=== PATIENT | female | born 1980 | race Caucasian/White ===

== ENCOUNTER 2023-07-06 21:36 | Emergency (ER) | payer MEDICAID, SELFPAY ==
[2023-07-06 21:51] VITALS: BP 128/102; PULSE 78; RESP 16; TEMP 36.7; O2SAT 95; BMI 36.9
--- NOTE | 2023-07-06 22:39 | ED.CHESTPAI1 ---
HPI - Chest Pain General Chief Complaint: Chest Pain Stated Complaint: CHEST PAIN Time Seen by Provider: 07/06/23 22:04 Source: patient History of Present Illness HPI narrative: daily cigarette smoker. Presents complaining of recurrent chest pain on and off since yesterday and associated dyspnea. No nausea or abdominal pain. Denies past history of heart disease. States after eating dinner tonight pain increased again. Now that she is here the pain has resolved MD complaint: Reports chest heaviness Related Data Allergies Allergy/AdvReac Type Severity Reaction Status Date / Time bupropion [From Wellbutrin] AdvReac Intermediate Agitated Verified 07/06/23 21:56 Review of Systems ROS Status of ROS 10 or more systems reviewed and unremarkable except as noted in history and below [facility] Social History Smoking status: Current every day smoker Exam Constitutional Vital Signs, click to edit/add: Last Vital Signs Temp 98.1 F 07/06/23 21:51 Pulse 78 07/06/23 21:51 Resp 16 07/06/23 21:51 BP 128/102 H 07/06/23 21:51 Pulse Ox 95 07/06/23 21:51 O2 Del Method Room Air 07/06/23 21:51 Common normals: no apparent distress, average body habitus, oriented x3, no limitations, healthy appearing, alert and well nourished Eye Common normals: EOMs intact bilaterally and conjunctivae normal Respiratory Common normals: normal respiratory effort, no retractions, no use of accessory muscles and clear to auscultation bilaterally Cardio Common normals: regular rate, regular rhythm, S1 normal heart sound and S2 normal heart sound GI Common normals: Normal to inspection, nondistended, normoactive bowel sounds present, soft to palpation and non-tender Extremity Common normals: normal to inspection and full ROM Neuro Common normals: oriented x3, CN's II-XII intact bilaterally, moves all extremities, no focal motor deficits and no sensory deficits noted Psych Appearance: grossly normal Course Vital Signs Vital signs: Vital Signs Temperature 98.1 F 07/06/23 21:51 Pulse Rate 78 07/06/23 21:51 Respiratory Rate 16 07/06/23 21:51 Blood Pressure 128/102 H 07/06/23 21:51 Pulse Oximetry 95 07/06/23 21:51 Oxygen Delivery Method Room Air 07/06/23 21:51 Temperature 98.1 F 07/06/23 21:51 Pulse Rate 78 07/06/23 21:51 Respiratory Rate 16 07/06/23 21:51 Blood Pressure 128/102 H 07/06/23 21:51 Pulse Oximetry 95 07/06/23 21:51 Oxygen Delivery Method Room Air 07/06/23 21:51 MDM - Chest Pain MDM Narrative Medical decision making narrative: patient presents with acute asthma flareup. Hospitalized in the past for asthma. presented short of breath and using accessory muscles. Treated with Xopenex and solumedrol and has improved. Still has diffuse wheeze but no longer using accessory muscles. cxray clear. Mildly elevated WBC discussed with hospitalist and patient admitted for asthma exacerbation Discharge Plan Discharge Chief Complaint: Chest Pain Clinical Impression: Asthma exacerbation Patient Disposition: Admitted as Observation Referrals: Physician,Non-Staff, MD [Primary Care Provider] - 1 week
--- NOTE | 2023-07-06 22:41 | XR_ITS ---
The [address] [address] Patient Name: THOMAS GARCIA MRN: [id number] date: 1980 Sex: F Assigned Patient Location: ER Current Patient Location: ER Accession/Order Number: [id number] Exam Date: 07/06/2023 22:55 Report Date: 07/06/2023 23:23 At the request of: MAYELA BAUER Procedure: XR chest 1V CXR HISTORY: Shortness of breath COMPARISON: None. TECHNIQUE: 1 view chest submitted for review. FINDINGS: The lungs are adequately expanded without evidence of acute infiltrate or effusion. The cardiac silhouette measures within normal. Pulmonary vascularity is unremarkable. Osseous structures do not demonstrate any acute abnormality. XR/XR chest 1V IMPRESSION: No plain film evidence for acute cardiopulmonary disease. Electronically authenticated by: ROMEO TOVAR Date: 07/06/2023 23:23
--- NOTE | 2023-07-06 22:41 | ECG_ITS ---
The [facility] Test Date: 2023-07-06 Pat Name: THOMAS GARCIA Department: Room: - Gender: Female [employer]: : 1980 Requested By: [id number] Order Number: [id number] Reading MD: CARLIN ENGLAND Measurements Intervals [place] Rate: 83 P: 38 ND: 178 QRS: 81 QRSD: 80 T: 46 QT: 366 QTc: 406 Interpretive Statements 1100 Sinus rhythm 9110 normal ECG No previous ECG available for comparison Electronically Signed On 07-07-2023 7:15:29 EDT by CARLIN ENGLAND
[2023-07-06 22:55] LABS: Basophils Absolute Auto 0.1 10^3/uL (0.0-0.1); Basophils Percent Auto 0.4 % (0.2-2.0); Hematocrit 39.1 % (36.0-48.0); Hemoglobin 13.2 g/dL (12.0-16.0); Immature Granulocytes Abs Auto 0.03 10^3/uL (0.00-0.03); Immature Granulocytes Pct Auto 0.2 % (0.0-0.5); Lymphocytes Absolute Auto 4.3 10^3/uL (1.2-3.8); Lymphocytes Percent Auto 34.7 % (20.5-60.0); Mean Corpuscular HGB Conc 33.8 g/dL (29.9-35.2); Mean Corpuscular Hemoglobin 30.8 pg (26.7-34.0); Mean Corpuscular Volume 91.1 fL (81.0-99.0); Monocytes Absolute Auto 1.1 10^3/uL (0.3-0.8); Monocytes Percent Auto 8.6 % (1.7-12.0); Neutrophils Absolute Auto 6.9 10^3/uL (1.4-6.5); Neutrophils Percent Auto 56.1 % (43.0-75.0); Platelet Count 300 10^3/uL (150-450); Red Blood Count 4.29 10^6/uL (4.20-5.40); Red Cell Distribution Width 13.4 % (11.0-15.0); White Blood Count 12.4 10^3/uL (4.0-11.0)
[2023-07-06 23:16] LABS: Anion Gap 8.9; BUN Creatinine Ratio 15.4; Calcium 8.8 mg/dL (8.5-10.1); Chloride 109 mmol/L (98-107); Estimated GFR (African America >60 (>=60); Estimated GFR (Non-African Ame >60 (>=60); Glucose 105 mg/dL (74-106); Potassium 3.9 mmol/L (3.5-5.1); Sodium 142 mmol/L (136-145); Troponin I High Sensitivity 4.7 pg/mL (4.0-51.3)
[2023-07-07 00:36] VITALS: BP 122/95; PULSE 73; RESP 22; O2SAT 100
== END 2023-07-07 00:50 | disposition home or self-care (01) ==
PROVIDERS: Emergency Provider Internal Medicine
DX: R07.9 Chest pain, unspecified (principal); F17.210 Nicotine dependence, cigarettes, uncomplicated
CPT/HCPCS: 36415; 71045; 80048; 84484; 85025; 93005; 99285

== ENCOUNTER 2023-08-01 22:04 | Emergency (ER) | payer MEDICAID, SELFPAY ==
[2023-08-01 22:16] VITALS: BP 132/91; PULSE 90; RESP 18; TEMP 36.5; O2SAT 100; BMI 38.0
--- NOTE | 2023-08-01 22:33 | ED_ITS ---
HPI - General Adult General Chief complaint: Headache Stated complaint: HEADACHE Time Seen by Provider: 08/01/23 22:09 Source: patient Mode of arrival: walk-in History of Present Illness HPI narrative: This 42-year-old female with a history of occasional migraine headaches presents for evaluation of a migraine headache that started earlier today associated with nausea and 4 episodes of vomiting. Right now she has a bifrontal headache, p hotophobia and phonophobia. She denies any thunderclap presentation of a headache. She has not had any slurred speech, blurred vision, confusion or any focal neurologic symptoms associated with this headache. She states she took Aleve earlier today which usually helps her headaches but she started throwing up and realized she could not go to work tonight. She has no abdominal pain. She still feels moderately nauseated. She has not had any diarrhea. She denies any chest pain or shortness of breath. Related Data Allergies Allergy/AdvReac Type Severity Reaction Status Date / Time bupropion [From Wellbutrin] AdvReac Intermediate Agitated Verified 07/06/23 21:56 Review of Systems ROS Status of ROS 10 or more systems reviewed and unremarkable except as noted in history and below [facility] Social History Smoking status: Current every day smoker Exam Narrative Exam Narrative: Nurses note and vital signs reviewed and patient is not hypoxic. General: The patient appears well and in no apparent distress. Sge is resting comfortably on the cart in a bright room. No distress noted, no active vomiting noted Skin: Warm, dry, no pallor noted. There is no rash noted. Head: Normocephalic, atraumatic Eye: Normal conjunctiva, no drainage, EOMI. PERRL, mild photophobia appreciated Ears, Nose, Mouth, and Throat: oral mucosa is moist. Cardiovascular: Regular Rate and Rhythm S1S2, no murmur, rubs or gallops Respiratory: Patient is in no distress, no accessory muscle use, lungs are clear to auscultation, no wheezing, rales or rhonchi Back: non-tender, no CVA tenderness bilaterally to percussion. GI: Normal bowel sounds, no tenderness to palpation, no masses appreciated. No rebound, guarding, or rigidity noted. Musculoskeletal: The patient has no evidence of calf tenderness, no pitting edema, symmetrical pulses noted bilaterally Neurological: A&O x4, normal speech, air brake tester strength is intact bilaterally, no facial droop, upper and lower extremity strength and sensation is intact Psychiatric: Cooperative Constitutional Vital Signs, click to edit/add: Last Vital Signs Temp 97.7 F 08/01/23 22:16 Pulse 90 08/01/23 22:16 Resp 18 08/01/23 22:16 BP 132/91 08/01/23 22:16 Pulse Ox 100 08/01/23 22:16 O2 Del Method Room Air 08/01/23 22:16 Course Vital Signs Vital signs: Vital Signs Temperature 97.7 F 08/01/23 22:16 Pulse Rate 90 08/01/23 22:16 Respiratory Rate 18 08/01/23 22:16 Blood Pressure 132/91 08/01/23 22:16 Pulse Oximetry 100 08/01/23 22:16 Oxygen Delivery Method Room Air 08/01/23 22:16 Temperature 97.7 F 08/01/23 22:16 Pulse Rate 90 08/01/23 22:16 Respiratory Rate 18 08/01/23 22:16 Blood Pressure 132/91 08/01/23 22:16 Pulse Oximetry 100 08/01/23 22:16 Oxygen Delivery Method Room Air 08/01/23 22:16 Medical Decision Making MDM Narrative Medical decision making narrative: This 43-year-old female presents for evaluation of a bifrontal migraine headache associated with nausea and 4 episodes of vomiting. She has a history of occasional migraine headaches. She denies any fever. She has no neck pain or stiffness. She denies any thunderclap presentation of her headache. She has no associated neurologic symptoms. She declined an IV and requested IM injections for her pain and nausea. She was medicated with IM Toradol and IM Phenergan. She remained hemodynamically stable in the emergency department. On reevaluation she stated she was feeling better and was able to be discharged home. Discharge Plan Discharge Chief Complaint: Headache Clinical Impression: Migraine, Headache Patient Disposition: Home, Self-Care Time of Disposition Decision: 23:32 Instructions: Migraine Headache (ED) Stand Alone Forms: Portal Instructions Referrals: Physician,Non-Staff, MD [Primary Care Provider] - 1 week
[2023-08-01] MEDS: KETOROLAC TROMETHAMINE 60 MG/2 ML VIAL IM (23:09)
[2023-08-01] MEDS: PROMETHAZINE HCL 25 MG/ML VIAL IM (23:09)
== END 2023-08-01 23:30 | disposition home or self-care (01) ==
PROVIDERS: Emergency Provider Emergency Medicine
DX: G43.909 Migraine, unspecified, not intractable, without status migrainosus (principal); F17.210 Nicotine dependence, cigarettes, uncomplicated
CPT/HCPCS: 96372; 99284

== ENCOUNTER 2024-01-01 22:18 | Emergency (ER) | payer MEDICAID, SELFPAY ==
[2024-01-01 22:23] VITALS: BP 152/121; PULSE 85; RESP 18; TEMP 36.6; O2SAT 96; BMI 36.9
--- NOTE | 2024-01-01 22:44 | ED_ITS ---
HPI - General Adult General Chief complaint: Headache Stated complaint: Headache Time Seen by Provider: 01/01/24 22:39 Source: patient Mode of arrival: walk-in Limitations: no limitations History of Present Illness HPI narrative: past history of migraines. States headache started yesterday with associated nausea. Same headache as with past migraines. Ate dinner tonight and afterwards vomited and now presents with her migraine. No fever or chills or extremity numbness or weakness Related Data Home Medications Medication Instructions Recorded Confirmed No Known Home Medications 01/01/24 01/01/24 Allergies Allergy/AdvReac Type Severity Reaction Status Date / Time bupropion [From Wellbutrin] AdvReac Intermediate Agitated Verified 01/01/24 22:26 Review of Systems ROS Status of ROS 10 or more systems reviewed and unremark able except as noted in history and below [facility] Social History Smoking status: Current every day smoker Exam Constitutional Vital Signs, click to edit/add: Last Vital Signs Temp 98.1 F 01/01/24 23:39 Pulse 85 01/01/24 22:23 Resp 18 01/01/24 22:23 BP 152/121 H 01/01/24 22:23 Pulse Ox 96 01/01/24 22:23 O2 Del Method Room Air 01/01/24 22:23 Common normals: no apparent distress, average body habitus, oriented x3, no limitations, healthy appearing, alert and well nourished [facility] Common normals: normocephalic and head/scalp atraumatic Eye Common normals: PERRL, EOMs intact bilaterally, conjunctivae normal and no scleral icterus Respiratory Common normals: normal respiratory effort, no retractions, no use of accessory muscles and clear to auscultation bilaterally Cardio Common normals: regular rate, S1 normal heart sound and S2 normal heart sound GI Common normals: Normal to inspection, nondistended, normoactive bowel sounds present, soft to palpation and non-tender Extremity Common normals: normal to inspection and full ROM Neuro Common normals: oriented x3, CN's II-XII intact bilaterally, moves all extremities, no focal motor deficits and no sensory deficits noted Psych Appearance: grossly normal Course Vital Signs Vital signs: Vital Signs Temperature 97.9 F 01/01/24 22:23 Pulse Rate 85 01/01/24 22:23 Respiratory Rate 18 01/01/24 22:23 Blood Pressure 152/121 H 01/01/24 22:23 Pulse Oximetry 96 01/01/24 22:23 Oxygen Delivery Method Room Air 01/01/24 22:23 Temperature 98.1 F 01/01/24 23:39 Pulse Rate 85 01/01/24 22:23 Respiratory Rate 18 01/01/24 22:23 Blood Pressure 152/121 H 01/01/24 22:23 Pulse Oximetry 96 01/01/24 22:23 Oxygen Delivery Method Room Air 01/01/24 22:23 Medical Decision Making MDM Narrative Medical decision making narrative: patient presents with migraine headache. states similar to past migraines. She does not want IV meds for her headaches. States she usually gets IM shot and can go home. I did review old records and before she was given IM Phenergan and T oradol. This was ordered this time as well Discharge Plan Discharge Chief Complaint: Headache Clinical Impression: Migraine Patient Disposition: Home, Self-Care Prescriptions / Home Meds: No Action No Known Home Medications Instructions: Migraine Headache (ED) Stand Alone Forms: Portal Instructions Referrals: Physician,Non-Staff, MD [Primary Care Provider] - 1 week
[2024-01-01 23:39] VITALS: TEMP 36.7
[2024-01-01] MEDS: KETOROLAC TROMETHAMINE 60 MG/2 ML VIAL IM (23:39)
[2024-01-01] MEDS: PROMETHAZINE HCL 25 MG/ML VIAL IM (23:39)
[2024-01-02 00:01] VITALS: BP 131/98
== END 2024-01-02 00:01 | disposition home or self-care (01) ==
PROVIDERS: Emergency Provider Internal Medicine
DX: G43.909 Migraine, unspecified, not intractable, without status migrainosus (principal); F17.210 Nicotine dependence, cigarettes, uncomplicated
CPT/HCPCS: 96372; 99284; J1885; J2250

== ENCOUNTER 2024-05-01 18:39 | Emergency (ER) | payer MEDICAID, SELFPAY ==
[2024-05-01 18:46] VITALS: BP 143/85; PULSE 105; TEMP 37; O2SAT 95; BMI 34.0
--- NOTE | 2024-05-01 18:48 | ED.GENADUL1 ---
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 She reports associated nausea and vomiting. She has not had any fevers or upper respiratory symptoms. She denies visual changes, peripheral paresthesias. She states after she was vomiting she noticed pain in the left posterior neck. And she is concerned that her shunt may have shifted as she has not had imaging for this shunt in several years. She is not concerned for . She has had previous evaluations for headache in this emergency department and was treated successfully with intramuscular Phenergan and Toradol, this is what the patient is requesting tonight Related Data Previous Rx's ?Medication ?Instructions ?Recorded ketorolac 10 mg tablet 10 mg PO TID PRN pain #10 tabs 05/01/24 promethazine 25 mg tablet 25 mg PO Q6H PRN nausea and 05/01/24 vomiting #12 tabs Allergies Allergy/AdvReac Type Severity Reaction Status Date / Time bupropion [From Wellbutrin] AdvReac Intermediate Agitated Verified 01/01/24 22:26 Opioid HPI Opioid Management Most Recent Opioid Data: Last Pain Scale 10 05/01/24 19:09 Last MAR Pain Assessment 05/01/24 19:09 Review of Systems ROS Constitutional Denies: fever or chills Eyes Denies: change in vision Ears, nose, mouth, and throat Denies: throat pain Cardiovascular Denies: chest pain Respiratory Denies: shortness of breath Gastrointestinal Reports: nausea and vomiting Genitourinary Denies: painful urination Musculoskeletal Reports: neck pain; Denies: back pain Integumentary/Breast Denies: rash Neurological Reports: headache; Denies: numbness in extremities, weakness in extremities or dizziness Hematologic/Lymphatic Denies: easy bruising or easy bleeding PFSH PFSH Social History Smoking status: Current every day smoker Exam Narrative Exam Narrative: Gen.: Awake, alert, in no distress Head: Normocephalic, atraumatic ENT: Moist mucous membranes, Diffuse minimal tenderness of the left paraspinal muscles of the cervical spine with no posterior bony tenderness, no nuchal rigidity or meningismus Respiratory: No respiratory distress Extremities: Moves extremities equally Psych: Normal mood and affect Neuro: No focal neuro deficit Skin: Warm, dry, intact Constitutional Vital Signs, click to edit/add: Last Vital Signs Temp 98.6 F 05/01/24 18:46 Pulse 80 05/01/24 20:28 Resp 16 05/01/24 20:28 BP 133/79 05/01/24 20:28 Pulse Ox 100 05/01/24 20:28 O2 Del Method Room Air 05/01/24 20:28 Course Vital Signs Vital signs: Vital Signs Temperature 98.6 F 05/01/24 18:46 Pulse Rate 105 H 05/01/24 18:46 Respiratory Rate 20 05/01/24 18:46 Blood Pressure 143/85 H 05/01/24 18:46 Pulse Oximetry 95 05/01/24 18:46 Oxygen Delivery Method Room Air 05/01/24 18:46 Temperature 98.6 F 05/01/24 18:46 Pulse Rate 80 05/01/24 20:28 Respiratory Rate 16 05/01/24 20:28 Blood Pressure 133/79 05/01/24 20:28 Pulse Oximetry 100 05/01/24 20:28 Oxygen Delivery Method Room Air 05/01/24 20:28 Medical Decision Making MDM Narrative Medical decision making narrative: Patient treated with intramuscular Phenergan and Toradol, she declined an IV. CT of the brain was performed, she has not had a CT of the head in this facility since 2017. Cystic area is stable, shunt is in place with no hydrocephalus. Patient is neurovascularly intact, headache is improved and she is resting comfortably on reevaluation. She is discharged home with Phenergan and Toradol. Follow-up with PCP and return to the ER if symptoms change or worsen SUPERVISED APC VISIT, PHYSICIAN ATTESTATION: Based on the medical record the care appears appropriate. ? Medical Records Medical records reviewed: Yes I reviewed the patient's medical records Imaging Data CT scan - head: Attestation: I have reviewed the pertinent imaging results. Radiologist's impression: ITS Impressions Head CT 05/01/24 18:52 IMPRESSION: 1. Occipital craniectomy with placement of drain/shunt in the posterior fossa extending to the left of midline posteriorly dorsal to the left cerebellar hemisphere extending through distribution of large CSF-containing cystic lesion at posterior midline cerebellar region. See measurements above. Correlate with history. 2. No acute ischemic change or intracranial hemorrhage. No hydrocephalus. No midline shift or herniation. 3. 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 4. 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 Electronically authenticated by: ZITA STEVE Date: 05/01/2024 20:13 Discharge Plan Discharge Stand Alone Forms: Portal Instructions Chief Complaint: Headache Clinical Impression: Headache Patient Disposition: Home, Self-Care Time of Disposition Decision: 20:20 Condition: Good Mode of Transportation: Private Vehicle Prescriptions / Home Meds: New ketorolac 10 mg tablet 10 mg PO TID PRN (Reason: pain) Qty: 10 0RF promethazine 25 mg tablet 25 mg PO Q6H PRN (Reason: nausea and vomiting) Qty: 12 0RF Print Language: Macedonian Instructions: Acute Headache (ED) Referrals: Physician,Non-Staff, [Primary Care Provider] - 1 week Discharge Date/Time: 05/01/24 20:28 Documented by User: Noel Morgan MD 05/02/24 06:52 HPI HPI - General Adult General Chief complaint: Headache Stated complaint: Headache Time Seen by Provider: 05/01/24 18:46 Related Data Previous Rx's ?Medication ?Instructions ?Recorded ketorolac 10 mg tablet 10 mg PO TID PRN pain #10 tabs 05/01/24 promethazine 25 mg tablet 25 mg PO Q6H PRN nausea and 05/01/24 vomiting #12 tabs Allergies Allergy/AdvReac Type Severity Reaction Status Date / Time bupropion [From Wellbutrin] AdvReac Intermediate Agitated Verified 01/01/24 22:26 Opioid HPI Opioid Management Most Recent Opioid Data: Last Pain Scale 10 05/01/24 19:09 Last MAR Pain Assessment 05/01/24 19:09 PFSH REPLACED BY [facility] Social History Smoking status: Current every day smoker Exam Constitutional Vital Signs, click to edit/add: Last Vital Signs Temp 98.6 F 05/01/24 18:46 Pulse 80 05/01/24 20:28 Resp 16 05/01/24 20:28 BP 133/79 05/01/24 20:28 Pulse Ox 100 05/01/24 20:28 O2 Del Method Room Air 05/01/24 20:28 Course Vital Signs Vital signs: Vital Signs Temperature 98.6 F 05/01/24 18:46 Pulse Rate 105 H 05/01/24 18:46 Respiratory Rate 20 05/01/24 18:46 Blood Pressure 143/85 H 05/01/24 18:46 Pulse Oximetry 95 05/01/24 18:46 Oxygen Delivery Method Room Air 05/01/24 18:46 Temperature 98.6 F 05/01/24 18:46 Pulse Rate 80 05/01/24 20:28 Respiratory Rate 16 05/01/24 20:28 Blood Pressure 133/79 05/01/24 20:28 Pulse Oximetry 100 05/01/24 20:28 Oxygen Delivery Method Room Air 05/01/24 20:28 Medical Decision Making Imaging Data CT scan - head: Radiologist's impression: ITS Impressions Head CT 05/01/24 18:52 IMPRESSION: 1. Occipital craniectomy with placement of drain/shunt in the posterior fossa extending to the left of midline posteriorly dorsal to the left cerebellar hemisphere extending through distribution of large CSF-containing cystic lesion at posterior midline cerebellar region. See measurements above. Correlate with history. 2. No acute ischemic change or intracranial hemorrhage. No hydrocephalus. No midline shift or herniation. 3. 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 4. 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 Electronically authenticated by: ZITA STEVE Date: 05/01/2024 20:13 Discharge Plan Discharge Stand Alone Forms: Portal Instructions Chief Complaint: Headache Clinical Impression: Headache Patient Disposition: Home, Self-Care Time of Disposition Decision: 20:20 Condition: Good Mode of Transportation: Private Vehicle Prescriptions / Home Meds: New ketorolac 10 mg tablet 10 mg PO TID PRN (Reason: pain) Qty: 10 0RF promethazine 25 mg tablet 25 mg PO Q6H PRN (Reason: nausea and vomiting) Qty: 12 0RF Print Language: Macedonian Instructions: Acute Headache (ED) Referrals: Physician,Non-Staff, MD [Primary Care Provider] - 1 week Discharge Date/Time: 05/01/24 20:28 Attending Attestation - Gen Attending Attestation Attestation: discussed this case with resident/PA/OPERATOR RECEPTIONIST, discussed management plan with case management and agree with resident/PA/OPERATOR RECEPTIONIST note
--- OUTSIDE RECORDS SUMMARY | 2024-05-01 18:49 | XMS_ITS ---
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 Name Role Phone Valentina Carlton Unavailable Unavailable Unavailable Unknown, Referring Provider Unavailable Unav ailable REQUEST, NONE LISTED Primary Care Unavaila RHONDA Stone Attending Unavailable PIERO, RHONDA Marks Admitting Unavailable RHONDA HARRY Consulting Unavailable INES PEDRAZA Consulting Unavailable SUZANNE, DR LESLIE Pearce Attending Unavailable SUZANNE, DR LESLIE Pearce Admitting Unavailable DIANA MERCEDES Consulting Unavailable REQUEST, NONE LISTED Primary Care Unavaila ABDULKADIR Robertson Consulting Unavailable SUZANNE, DR LESLIE Pearce Attending Unavailable SUZANNE, DR LESLIE Pearce Admitting Unavailable REQUEST, NONE LISTED Primary Care Unavaila nell PALACIOS, DR LESLIE Pearce Consulting Unavailable SUZANNE, DR LESLIE Pearce Attending Unavailable SUZANNE, DR LESLIE Pearce Admitting Unavailable SUZANNE, DR LESLIE Pearce Consulting Unavailable REQUEST, NONE LISTED Primary Care Unavaila KENDALL Cole Referring Unavailable KENDALL العلي Primary Care Unavailable NICHOLE MCCORMICK Attending Unavailable Allergies Allergy Classification Reported Allergen(s) Allergy Type Date of Onset Reaction(s) Facility Aminoketones (4 sources) buPROPion; Translations: [Wellbutrin] Drug Allergy Other -[facility] Work Phone: (12 sources) buPROPion; Translations: [Wellbutrin] Drug Allergy Other [facility] Work Phone: (1 source) buPROPion Drug Allergy 07-30-2017 [facility] Repository (1 source) buPROPion; Translations: [BUPROPION HCL] Drug Allergy 02-13-2019 [facility] Repository Encounters Encounter Date Encounter Type Care Provider Facility Start: 09-15-2022 End: 09-15-[address] LESLIE PALACIOS Facility:[facility] Start: 09-12-2022 End: 09-12-[address] RANDALL LISTED REQUEST Facility:[facility] Start: 08-16-2022 End: 08-17-[address] LESLIE PALACIOS Facility:[facility] Start: 07-11-2022 End: 07-12-[address] LESLIE PALACIOS Facility:[facility] Start: 02-04-2022 AUDIT Referring Prov ider Unknown [facility] Work Phone: Start: 02-02-2022 Office outpatient vi sit 25 minutes Referring Provider Unknown [facility] Work Phone: Start: 01-06-2022 Chart Update Referring Prov ider Unknown [facility] Work Phone: Start: 01-04-2022 Office outpatient vi sit 25 minutes Referring Provider Unknown [facility] Work Phone: Start: 07-23-2021 Patient encounter procedure Referring Provider Unknown [facility] Work Phone: Start: 07-17-2021 AQUATICFU4, Provider : Es Hurtado, Status: Pen, Time: 10:00 AM Referring Provider Unknown [facility] Work Phone: Start: 07-17-2021 Patient encounter procedure Referring Provider Unknown [facility] Work Phone: Start: 07-15-2021 AQUATICFU4, Provider : Es Hurtado, Status: Pen, Time: 10:00 AM Referring Provider Unknown [facility] Work Phone: Start: 07-15-2021 Patient encounter procedure Referring Provider Unknown [facility] Work Phone: Start: 07-13-2021 Patient encounter procedure Referring Provider Unknown [facility] Work Phone: Start: 07-13-2021 AQUATICFU4, Provider : Susanna Santiago, Status: Pen, Time: 10:00 AM Referring Provider Unknown [facility] Work Phone: Start: 07-10-2021 AQUATICFU4, Provider : Es Hurtado, Status: Pen, Time: 9:15 AM Referring Provider Unknown [facility] Work Phone: Start: 07-10-2021 [facility] encounter [facility] Work Phone: Start: 07-08-2021 AQUATICFU4, Provider : Es Hurtado, Status: Pen, Time: 10:00 AM Referring Provider [facility] Work Phone: Start: 07-08-2021 Patient encounter procedure Referring Provider [facility] Work Phone: Start: 07-07-2021 End: 07-07-2021 ambulatory KENDALL العلي [facility] Start: 07-06-2021 Patient encounter procedure Referring Provider [facility] Work Phone: Start: 07-02-2021 Patient encounter procedure Referring Provider [facility] Work Phone: Start: 05-19-2021 Rx Renewal Referring Prov ider Unknown [facility] Work Phone: Start: 04-30-2021 AUDIT Referring Prov ider Unknown [facility] Work Phone: Start: 04-28-2021 Office outpatient vi sit 15 minutes Referring Provider Unknown [facility] Work Phone: Start: 04-09-2021 Rx Renewal Valentina pearce Work Phone: [facility] Work Phone: Immunizations Immunization Date Immunization Notes Care Provider Scott garnett 09-12-2019 influenza, injectabl e, quadrivalent, preservative free Referring Provider Unknown [facility] Work Phone: 09-12-2019 tetanus toxoid, redu gene diphtheria toxoid, and acellular pertussis vaccine, adsorbed Referring Provider Unknown -[facility] Work Phone: Medications Completed/Discontinued Medications Medication Drug Class(es) Dates Sig (Normalized) Sig (Original) DULoxetine 30 mg delayed release oral capsule (4 sources) Serotonin and Norepinephrine Reuptake Inhibitor Start: 01-04-2022 take 1 capsule by mouth once daily DULoxetine HCl - 30 MG Oral Capsule Delayed Release Particles TAKE 1 CAPSULE Daily Quantity: 90 Refills: 3 Ordered: 02-Feb-2022 Stentz PA-C, George Start : 04-Jan-2022 Active Start: 01-04-2022 take 1 capsule by mo uth twice daily DULoxetine HCl - 30 MG Oral Capsule Delayed Release Particles TAKE 1 CAPSULE TWICE DAILY. Quantity: 60 Refills: 0 Ordered: 04-Jan-2022 Stentz PA-C, George Start : 04-Jan-2022 Active Fish Oil Burp-Less 1200 MG Oral Capsule (11 sources) Start: 04-28-2021 take 1 capsule by mouth once daily Fish Oil Burp-Less 1200 MG Oral Capsule TAKE 1 CAPSULE Daily Quantity: 30 Refills: 0 Ordered: 28-Apr-2021 Valentina Aguayo Start : 28-Apr-2021 Active Fish Oil 1200 MG Oral Capsule (9 sources) Start: 05-19-2021 take 1 capsule by mouth once daily Fish Oil 1200 MG Oral Capsule TAKE 1 CAPSULE BY MOUTH EVERY DAY Quantity: 30 Refills: 5 Ordered: 19-May-2021 Valentina Aguayo Start : 19-May-2021 Active FLUoxetine 40 mg oral capsule (5 sources) Serotonin Reuptake Inhibitor Start: 01-25-2022 take 1 capsule by mouth once daily in the morning FLUoxetine HCl - 40 MG Oral Capsule TAKE 1 CAPSULE BY MOUTH EVERY DAY IN THE MORNING Quantity: 30 Refills: 0 Ordered: 25-Jan-2022 DO Start : 25-Jan-2022 Active Start: 11-11-2021 take 1 capsule by mo uth once daily in the morning FLUoxetine HCl - 20 MG Oral Capsule TAKE 1 CAPSULE BY MOUTH EVERY DAY IN THE MORNING Quantity: 30 Refills: 0 Ordered: 08-Dec-2021 DO Start : 11-Nov-2021 Complete PROzac 10 MG Ora l Capsule Quantity: 0 Refills: 0 Ordered: 04-Jan-2022 DO Active QUEtiapine 300 mg oral tablet (16 sources) Atypical Antipsychotic Start: 03-17-2021 take 1 tablet by mouth once daily at bedtime QUEtiapine Fumarate 300 MG Oral Tablet TAKE 1 TABLET BY MOUTH EVERYDAY AT BEDTIME Quantity: 30 Refills: 5 Ordered: 28-Apr-2021 Bianka ELLIS-Valentina MAS Start : 17-Mar-2021 Active red yeast rice 600 mg oral capsule (11 sources) Start: 04-28-2021 take 2 capsules by mouth once daily Red Yeast Rice 600 MG Oral Capsule TAKE 2 CAPSULE Daily Quantity: 60 Refills: 5 Ordered: 28-Apr-2021 Bianka BLANKN-RETAIL SALES ADVISOR, Valentina Start : 28-Apr-2021 Active varenicline 1 mg oral tablet (1 source) Partial Cholinergic Nicotinic Agonist Start: 02-04-2022 take 1 tablet by mouth once daily, then take 2 tablets by mouth once daily Varenicline Tartrate 1 MG Oral Tablet Take 1 tablet once daily for the first week, then take 2 tablets daily. Quantity: 60 Refills: 3 Ordered: 04-Feb-2022 George Sosa PA-C Start : 04-Feb-2022 Active Payers Date Payer Category Payer Unknown [id number] 1980 Unknown [id number] 1980 Unknown [id number] 1980 Unknown [id number] 1959 Medicaid [id number] 1959 Self-pay [id number] Unknown [facility] PL[facility] Plan of Treatment Date Care Activity Detail Author Start: 05-07-2022 EPV, Provider: George Sosa, Status: Pen, Time: 1:15 PM EPV, Provider: George Sosa, Status: Pen, Time: 1:15 PM [facility] Work Phone: Start: 02-02-2022 FUV, Provider: George Sosa, Status: Pen, Time: 1:15 PM FUV, Provider: George Sosa, Status: Pen, Time: 1:15 PM [facility] Work Phone: Start: 07-30-2021 EPV, Provider: Valentina Carlton, Status: Pen, Time: 12:45 PM EPV, Provider: Valentina Carlton, Status: Pen, Time: 12:45 PM [facility] Work Phone: Start: 07-24-2021 PTRECHECKA, Provider : Yoseph Arshad, Status: Pen, Time: 1:15 PM PTRECHECKA, Provider: Yoseph Arshad, Status: Pen, Time: 1:15 PM [facility] Work Phone: Start: 07-23-2021 PTFUADULT4, Provider : Stephan Lyon, Status: Pen, Time: 10:00 AM PTFUADULT4, Provider: Stephan Lyon, Status: Pen, Time: 10:00 AM [facility] Work Phone: Start: 07-21-2021 PTFUADULT4, Provider : Stephan Lyon, Status: Pen, Time: 10:00 AM PTFUADULT4, Provider: Stephan Lyon, Status: Pen, Time: 10:00 AM [facility] Work Phone: Start: 07-17-2021 AQUATICFU4, Provider : Es Hurtado, Status: Pen, Time: 10:00 AM AQUATICFU4, Provider: Es Hurtado, Status: Pen, Time: 10:00 AM [facility] Work Phone: Start: 07-15-2021 AQUATICFU4, Provider : Es Hurtado, Status: Pen, Time: 10:00 AM AQUATICFU4, Provider: Es Hurtado, Status: Pen, Time: 10:00 AM [facility] Work Phone: Start: 07-13-2021 AQUATICFU4, Provider : Susanna Santiago, Status: Pen, Time: 10:00 AM AQUATICFU4, Provider: Susanna Santiago, Status: Pen, Time: 10:00 AM [facility] Work Phone: Start: 07-10-2021 AQUATICFU4, Provider : Es Hurtado, Status: Pen, Time: 9:15 AM AQUATICFU4, Provider: Es Hurtado, Status: Pen, Time: 9:15 AM [facility] Work Phone: Start: 07-08-2021 AQUATICFU4, Provider : Es Hurtado, Status: Pen, Time: 10:00 AM AQUATICFU4, Provider: Es Hurtado, Status: Pen, Time: 10:00 AM [facility] Work Phone: Start: 07-06-2021 AQUATICFU4, Provider : Es Hurtado, Status: Pen, Time: 1:45 PM AQUATICFU4, Provider: Es Hurtado, Status: Pen, Time: 1:45 PM [facility] Work Phone: Start: 04-28-2021 FUV, Provider: Valentina Carlton, Status: Pen, Time: 1:45 PM FUV, Provider: Valentina Carlton, Status: Pen, Time: 1:45 PM [facility] Work Phone: Problems Active Problems Problem Classification Problem Date Documented Date Episodic/Chronic Anxiety disorders (16 sources) Mixed anxiety and depressive disorder; Translations: [Dysthymic disorder] Chronic Asthma (1 source) Unspecified asthma, uncomplicated; Translations: [UNSPECIFIED ASTHMA UNCOMPLICATED] Onset: 09-16-2022 Chronic Diabetes mellitus without complication (16 sources) Impaired fasting glycemia; Translations: [Impaired fasting glucose] Episodic Disorders of lipid metabolism (15 sources) Hyperlipidemia; Translations: [Other and unspecified hyperlipidemia] Chronic Headache; including migraine (4 sources) Migraine, unspecified, not intractable, without status migrainosus; Translations: [MIGRAINE UNS NOT INTRACT W/O SM] Onset: 08-16-2022 Chronic Malaise and fatigue (4 sources) Fatigue; Translations: [Other malaise and fatigue] Episodic Mood disorders (18 sources) Bipolar disorder, most recent episode depression; Translations: [Bipolar I disorder, most recent episode (or current) depressed, unspecified] Chronic Other connective tissue disease (4 sources) Fibromyalgia; Translations: [Myalgia and myositis, unspecified] Episodic Other non-traumatic joint disorders (4 sources) Pain in left shoulder; Translations: [PAIN IN LEFT SHOULDER] Onset: 09-15-2022 Episodic Other non-traumatic joint disorders (3 sources) Pain in right shoulder; Translations: [PAIN IN RIGHT SHOULDER] Onset: 09-12-2022 Episodic Other nutritional; endocrine; and metabolic disorders (20 sources) Body mass index 40+ - severely obese; Translations: [Body Mass Index 40.0-44.9, adult] Chronic Residual codes; unclassified (1 source) Acquired absence of other specified parts of digestive tract; Translations: [ACQ ABSENCE OTH PART DIGESTV TRACT] Onset: 09-16-2022 Episodic Spondylosis; intervertebral disc disorders; other back problems (15 sources) Degeneration of lumbar intervertebral disc; Translations: [Degeneration of lumbar or lumbosacral intervertebral disc] Chronic Spondylosis; intervertebral disc disorders; other back problems (20 sources) Lumbar radiculopathy; Translations: [Thoracic or lumbosacral neuritis or radiculitis, unspecified] Episodic Sprains and strains (1 source) Strain of unspecified muscle, fascia and tendon at shoulder and upper arm level, right arm, initial encounter; Translations: [STRN UNS MSC F TND SHLDR UA RA INIT] Onset: 09-14-2022 Episodic Substance-related disorders (1 source) Nicotine dependence, cigarettes, uncomplicated; Translations: [NICOTINE DEPEND CIGARETTES UNCOMP] Onset: 09-16-2022 Chronic Past or Other Problems Problem Classification Problem Date Documented Da te Episodic/Chronic E Codes: Cut/pierceb (1 source) Nail entering through skin, initial encounter; Translations: [NAIL ENTERING THROUGH SKIN INITIAL] Onset: 07-14-2022 Episodic Immunizations and screening for infectious disease (1 source) Encounter for immunization; Translations: [ENCOUNTER FOR IMMUNIZATION] Onset: 07-14-2022 Episodic Open wounds of extremities (4 sources) Puncture wound without foreign body, left foot, initial encounter; Translations: [PUNCT WOUND W/O FB LT FOOT INITIAL] Onset: 07-11-2022 Episodic Other aftercare (1 source) Other terminal computer operator (current) drug therapy; Translations: [OTH SLABBING MACHINE OPERATOR CURRENT DRUG THERAPY] Onset: 07-14-2022 Episodic Procedures Date Procedure Procedure Detail Performing Clinician Appendectomy Valentina Carlton Work Phone: Bilateral tubal ligation Josh Carlton Work Phone: Creation of cerebros sariah fluid shunt Valentina Carlton Work Phone: Operation on gallbladder Josh Carlton Work Phone: Operative procedure on knee Valentina Carlton Work Phone: Comment on above: right knee tumor rem rony; Results Test Name Value Interpretation Reference Range Facility Prison Documentson 01-03-2023 Prison Documents [id number] :127 Normal [facility] Prison Documentson 11-30-2022 Prison Documents [id number]: 127 Normal [facility] XR SHOULDER RT 2V or >on XR SHOULDER RT 2V or > EXAM: XR SHOULDER RT 2V or > INDICATION: Pain. COMPARISON: None. TECHNIQUE: Right shoulder, 3 views. FINDINGS: No acute fracture or dislocation. Intact glenohumeral and acromioclavicular joints. Unremarkable soft tissues. IMPRESSION: No acute osseous abnormality. Electronically authenticated by: INES PEDRAZA Date: 2022-09-12 17:42 Normal [facility] XR FOOT LT MIN 3 VIEWSon XR FOOT LT MIN 3 VIEWS EXAM: XR FOOT LT MIN 3 VIEWS HISTORY: Stepped on nail COMPARISON: None. TECHNIQUE: 4 views FINDINGS: No radiodense foreign body. No osseous lesion, fracture, dislocation or subluxation. Joint spaces are normal. No visualized effusion. No visualized soft tissue edema. IMPRESSION: Normal x-rays Electronically authenticated by: ABDULKADIR SIFUENTES Date: 2022-07-11 22:56 Normal [facility] Office Visit (Family Dilia kennedy)on 02-02-2022 Follow-up visit Diagnoses/Problems Bipolar depression (296.50) (F31.9) Fibromyalgia (729.1) (M79.7) Fatigue (780.79) (R53.83) Hyperlipidemia (272.4) (E78.5) Impaired fasting glucose (790.21) (R73.01) Morbid obesity with BMI of 40.0-44.9, adult (278.01,V85.41) (E66.01,Z68.41) Anxiety (300.00) (F41.9) Depression (311) (F32.A) Orders Fatigue Vitamin B12, Serum; Status:Hold For - Exact Date; Requested for:Before next appointment; Vitamin D 25-Hydroxy; Status:Hold For - Exact Date; Requested for:Before next appointment; Fibromyalgia Renew: DULoxetine HCl - 30 MG Oral Capsule Delayed Release Particles (Cymbalta); TAKE 1 CAPSULE Daily Impaired fasting glucose Complete Blood Count + Differential; Status:Active; Requested for:02Feb2022; Follow-up visit in 3 months Outpatient Follow-up Status: Complete Done: 02Feb2022 SCHEDULED FOR... OV MAY 07 2022 @ 1:15 Comprehensive Metabolic Panel; Status:Active; Requested for:02Feb2022; Glucose Monitoring Strips; Status:Active; Requested for:02Feb2022; Hemoglobin A1C; Status:Active; Requested for:02Feb2022; Lipid Panel; Status:Active; Requested for:02Feb2022; Provider Impressions BIPOLAR: Stable, continue Seroquel. ANXIETY: Stable, continue fluoxetine. DEPRESSION: Stable, continue fluoxetine. FIBROMYALGIA: Reduce cymbalta to once daily, may go back up to two prn. FATIGUE: Discussed at length sleep hygiene, healthy diet choices, and moderate amount of exercise. HYPERLIPIDEMIA: She would like to address this with diet and exercise. Lipid panel in 3 months. IMPAIRED FASTING GLUCOSE: She would like to address this with diet and exercise. A1C in 3 months. Follow up in 3 months with labs. Patient verbalized understanding, is agreeable with the above plan, and verbalized understanding of all education provided. Chief Complaint 1 month med check , pt c/o of fatigue. History of Present Illness 41 YOF presents for med check. BIPOLAR: Feeling good on current regimen. No issues. ANXIETY: Feeling good on current regimen. No issues. DEPRESSION: Feeling good on current regime. No issues. FIBROMYALGIA: Cymbalta effective since starting, reduced pain and paresthesias in hands. FATIGUE: Increased fatigue since starting cymbalta. Sleeps well. Does not exercise, diet not the healthiest . HYPERLIPIDEMIA: ASCVD 10 year risk 7.37%-borderline. Discussed statin therapy vs. diet modification and exercise. IMPAIRED FASTING GLUCOSE: Last A1C 6.1. Discussed metformin vs. diet modification and exercise. HEALTH MAINTENANCE: Does no follow with [facility], does not want mammogram right now. Check B12 and Vit D at follow up. 'Scores and Scales' ROSEY-7 [id number] ROSEY-7 Total Score21 Feeling nervous, anxious or on edgeNearly every day - 3 Not being able to stop or control worryingNearly every day - 3 Worrying too much about different thingsNearly every day - 3 Trouble relaxingNearly every day - 3 Being so restless that it's hard to sit stillNearly every day - 3 Becoming easily annoyed or irritableNearly every day - 3 Feeling afraid as if something awful might happenNearly every day - 3 Review of Systems Review of Systems: Constitutional: no fever, no unintentional weight change Eye: no recent visual problem Respiratory: no shortness of breath Cardiac: no chest pain GI: no reflux, no nausea, no vomiting, no diarrhea, no constipation, no heartburn, no abdominal pain Neurological: no headache Active Problems Bipolar depression (296.50) (F31.9) Body mass index (BMI) of 40.0 to 44.9 in adult (V85.41) (Z68.41) Disc degeneration, lumbar (722.52) (M51.36) Fatigue (780.79) (R53.83) Fibromyalgia (729.1) (M79.7) Hyperlipidemia (272.4) (E78.5) Impaired fasting glucose (790.21) (R73.01) Low back pain (724.2) (M54.50) Morbid obesity with BMI of 40.0-44.9, adult (278.01,V85.41) (E66.01,Z68.41) Radiculopathy, lumbar region (724.4) (M54.16) Surgical History History of Appendectomy History of Cerebrospinal fluid shunt creation History of Gallbladder surgery History of Knee surgery right knee tumor removed History of Tubal ligation bilateral Family History Family history of type 2 diabetes mellitus (V18.0) (Z83.3) Family history of type 2 diabetes mellitus (V18.0) (Z83.3) Family history of blood clots (V18.3) (Z82.49) Family history of lung cancer (V16.1) (Z80.1) Family history of blood clots (V18.3) (Z82.49) Social History Current every day smoker (305.1) (F17.200) started age 16 yr old, 1 1/2 ppd No advance directives (V49.89) (Z78.9) Allergies Wellbutrin very jittery; Recorded By: Hyacinth Ruiz; 03/17/2021 1:46:47 PM Current Meds Medication NameInstructionReason QUEtiapine Fumarate 300 MG Oral TabletTAKE 1 TABLET BY MOUTH EVERYDAY AT BEDTIMEBipolar depression DULoxetine HCl - 30 MG Oral Capsule Delayed Release ParticlesTAKE 1 CAPSULE TWICE DAILY.Fibromyalgia FLUoxetine HCl - 40 MG Oral CapsuleTAKE 1 CAPSULE BY MOUTH EVERY D (more content not included)... Normal [employer] Tobacco Screening.on 022 Tobacco use status [facility]PHS a) Yes -[facility] Work Phone: [phone] Tobacco Screening. Yes [facility] Work Phone: [phone] LAMONT-WITH REFLEX TO ENAon LAMONT WITH REFLEX TO CHARLEEN Negative Normal NEGATIVE [facility] Comment on above: Result Comment: The Antinuclear Antibody (LAMONT) test was performed using indirect immunofluorescence assay with HEp-2 cells slide. Performed By: #### A NA2 #### [facility] [address] [place] [address] BASIC METABOLIC PANELon 12-16 Anion gap [Moles/Vol] 12 mmol/L Normal 10 - 20 [facility] Comment on above: Performed By: #### B MP #### [address] [address] Calcium [Mass/Vol] 9.2 mg/dL Normal 8.6 - 10.3 [facility] Comment on above: Performed By: #### B MP #### [address] [address] Chloride [Moles/Vol] 104 mmol/L Normal 98 - 107 [facility] Comment on above: Performed By: #### B MP #### [address] [address] Creatinine [Mass/Vol] 0.73 mg/dL Normal 0.50 - 1.05 [facility] Comment on above: Performed By: #### B MP #### [address] [address] eGFR FEMALE >90 Normal >90 [facility] Comment on above: Result Comment: CALC ULATIONS OF ESTIMATED GFR ARE PERFORMED USING THE 2020 CKD-EPI STUDY REFIT EQUATION WITHOUT THE RACE VARIABLE FOR THE IDMS-TRACEABLE CREATININE METHODS. https://jasn.asnjournals.org/content//ASN.181769112 8 Performed By: #### B MP #### [address] [address] Glucose [Mass/Vol] 85 mg/dL Normal 74 - 99 [facility] Comment on above: Performed By: #### B MP #### [address] [address] HCO3 (Bld) [Moles/Vol] 25 mmol/L Normal 21 - 32 [facility] Comment on above: Performed By: #### B MP #### [address] [address] Potassium [Moles/Vol] 4.2 mmol/L Normal 3.5 - 5.3 [facility] Comment on above: Performed By: #### B MP #### [address] [address] Sodium [Moles/Vol] 137 mmol/L Normal 136 - 145 [facility] Comment on above: Performed By: #### B MP #### [address] [address] Urea nitrogen [Mass/Vol] 11 mg/dL Normal 6 - 23 [facility] Comment on above: Performed By: #### B MP #### [address] [address] CBC AND DIFFERENTIALon 01-04 Basophils (Bld) [#/Vol] 0.00 10*3/uL Normal 0.00 - 0.10 [facility] Comment on above: Performed By: #### C BCDF #### [address] [address] Basophils/100 WBC (Bld) 0.3 % Normal 0.0 - 2.0 [facility] Comment on above: Performed By: #### C BCDF #### [address] [address] Eosinophils (Bld) [#/Vol] 0.00 10*3/uL Normal 0.00 - 0.70 [facility] Comment on above: Performed By: #### C BCDF #### [address] [address] Eosinophils/100 WBC (Bld) 0.0 % Normal 0.0 - 6.0 [facility] Comment on above: Performed By: #### C BCDF #### [address] [address] Erythrocyte distribution width (RBC) [Ratio] 14.7 % High 11.5 - 14.5 [facility] Comment on above: Performed By: #### C BCDF #### [address] [address] Hematocrit (Bld) [Volume fraction] 43.0 % Normal 36.0 - 46.0 [facility] Comment on above: Performed By: #### C BCDF #### [address] [address] Hemoglobin (Bld) [Mass/Vol] 14.1 g/dL Normal 12.0 - 16.0 [facility] Comment on above: Performed By: #### C BCDF #### [address] [address] Lymphocytes (Bld) [#/Vol] 4.20 10*3/uL Normal 1.20 - 4.80 [facility] Comment on above: Performed By: #### C BCDF #### [address] [address] Lymphocytes/100 WBC (Bld) 33.8 % Normal 13.0 - 44.0 [facility] Comment on above: Performed By: #### C BCDF #### [address] [address] MCHC (RBC) [Mass/Vol] 32.7 g/dL Normal 32.0 - 36.0 [facility] Comment on above: Performed By: #### C BCDF #### [address] [address] MCV (RBC) [Entitic vol] 90 fL Normal 80 - 100 [facility] Comment on above: Performed By: #### C BCDF #### [address] [address] Monocytes (Bld) [#/Vol] 0.90 10*3/uL Normal 0.10 - 1.00 [facility] Comment on above: Performed By: #### C BCDF #### [address] [address] Monocytes/100 WBC (Bld) 7.2 % Normal 2.0 - 10.0 [facility] Comment on above: Performed By: #### C BCDF #### [address] [address] Neutrophils (Bld) [#/Vol] 7.20 10*3/uL Normal 1.20 - 7.70 [facility] Comment on above: Result Comment: Perc ent differential counts (%) should be interpreted in the context of the absolute cell counts (cells/L). Performed By: #### C BCDF #### [address] [address] Neutrophils/100 WBC (Bld) 58.7 % Normal 40.0 - 80.0 [facility] Comment on above: Performed By: #### C BCDF #### [address] [address] NUCLEATED RBC 0.1 /100 WBC Normal [facility] Comment on above: Performed By: #### C BCDF #### [address] [address] Platelets (Bld) [#/Vol] 432 10*3/uL Normal 150 - 450 [facility] Comment on above: Performed By: #### C BCDF #### [address] [address] RBC 4.80 x10E12/L Normal 4.00 - 5.20 [facility] Comment on above: Performed By: #### C BCDF #### [address] [address] WBC (Bld) [#/Vol] 12.3 10*3/uL High 4.4 - 11.3 [facility] Comment on above: Performed By: #### C BCDF #### [address] [address] Complete Blood Count + Diffmarcia jarvis 01-04-2022 Basophils/100 WBC (Bld) 0.3 % 0.0 - 2.0 [facility] Work Phone: [phone] Erythrocyte distribution width (RBC) [Ratio] 14.7 % above high threshold See Below [facility] Work Phone: [phone] Comment on above: Reference Range: 11. 5 - 14.5 Hematocrit (Bld) [Volume fraction] 43.0 % See Below [facility] Work Phone: [phone] Comment on above: Reference Range: 36. 0 - 46.0 Hemoglobin (Bld) [Mass/Vol] 14.1 g/dL See Below [facility] Work Phone: [phone] Comment on above: Reference Range: 12. 0 - 16.0 Lymphocytes/100 WBC (Bld) 33.8 % See Below [facility] Work Phone: [phone] Comment on above: Reference Range: 13. 0 - 44.0 MCHC (RBC) [Mass/Vol] 32.7 g/dL See Below [facility] Work Phone: [phone] Comment on above: Reference Range: 32. 0 - 36.0 MCV (RBC) [Entitic vol] 90 fL 80 - 100 [facility] Work Phone: [phone] Monocytes/100 WBC (Bld) 7.2 % 2.0 - 10.0 [facility] Work Phone: [phone] Neutrophils/100 WBC (Bld) 58.7 % See Below [facility] Work Phone: [phone] Comment on above: Reference Range: 40. 0 - 80.0 Platelets (Bld) [#/Vol] 432 10*3/uL 150 - 450 [facility] Work Phone: [phone] RBC (Bld) [#/Vol] 4.80 {x10E12/L} See Below [facility] Work Phone: [phone] Comment on above: Reference Range: 4.0 0 - 5.20 WBC (Bld) [#/Vol] 12.3 10*3/uL above high threshold 4.4 - 11.3 [facility] Work Phone: [phone] Complete Blood Count + Differential 0.00 {x10E9/L} See Below [facility] Work Phone: [phone] Comment on above: Reference Range: 0.0 0 - 0.10 Reference Range: 0.0 0 - 0.70 Complete Blood Count + Differential 0.90 {x10E9/L} See Below [facility] Work Phone: [phone] Comment on above: Reference Range: 0.1 0 - 1.00 Complete Blood Count + Differential 4.20 {x10E9/L} See Below [facility] Work Phone: [phone] Comment on above: Reference Range: 1.2 0 - 4.80 Complete Blood Count + Differential 7.20 {x10E9/L} See Below [facility] Work Phone: Comment on above: Reference Range: 1.2 0 - 7.70 Percent differential counts (%) should be interpreted in the context of the absolute cell counts (cells/L). Complete Blood Count + Differential 0.0 % 0.0 - 6.0 [facility] Work Phone: Complete Blood Count + Differential 0.1 {/100_WBC} [facility] Work Phone: HEMOGLOBIN A1Con 01-04-2022 Glucose [Mass/Vol] 128 mg/dL Normal [facility] Comment on above: Performed By: #### H BA1E #### [address] [address] HbA1c (Bld) [Mass fraction] 6.1 % Abnormal [facility] Comment on above: Result Comment: Diag nosis of Diabetes-Adults Non-Diabetic: < or = 5.6% Increased risk for developing diabetes: 5.7-6.4% Diagnostic of diabetes: > or = 6.5% . Monitoring of Diabetes Age (y) Therapeutic Goal (%) Adults: >18 <7.0 Pediatrics: 13-18 <7.5 7-12 <8.0 0- 6 7.5-8.5 [employer]. Diabetes Care 33(S1), Nov 2009. Performed By: #### H BA1E #### [address] [address] Hemoglobin A1Con 01-04-2022 Glucose [Mass/Vol] 128 mg/dL [facility] Work Phone: HbA1c (Bld) [Mass fraction] 6.1 % Abnormal [facility] Work Phone: Comment on above: Diagnosis of Diabete s-Adults Non-Diabetic: < or = 5.6% Increased risk for developing diabetes: 5.7-6.4% Diagnostic of diabetes: > or = 6.5%. Monitoring of Diabetes Age (y) Therapeutic Goal (%) Adults: >18 <7.0 Pediatrics: 13-18 <7.5 7-12 <8.0 0- 6 7.5-8.5 [employer]. Diabetes Care 33(S1), Nov 2009. LIPID PANEL (CORONARY RISK 2 )on 01-04-2022 Cholesterol [Mass/Vol] 239 mg/dL High 0 - 199 [facility] Comment on above: Result Comment: . AGE DESIRABLE BORDERLINE HIGH HIGH 0-19 Y 0 - 169 170 - 199 >/= 200 20-24 Y 0 - 189 190 - 224 >/= 225 >24 Y 0 - 199 200 - 239 >/= 240 All ranges are based on fasting samples. Specific therapeutic targets will vary based on patient-specific cardiac risk. . Pediatric guidelines reference:Pediatrics 2011, 128(S5). Adult guidelines reference: NCEP ATPIII Guidelines, JOSE 2001, 258:6776-97 . Venipuncture immediately after or during the administration of Metamizole may lead to falsely low results. Testing should be performed immediately prior to Metamizole dosing. Performed By: #### L IPID #### [address] [address] Cholesterol in HDL [Mass/Vol] 34.0 mg/dL Abnormal [facility] Comment on above: Result Comment: . AGE VERY LOW LOW NORMAL HIGH 0-19 Y < 35 < 40 40-45 ---- 20-24 Y ---- < 40 >45 ---- >24 Y ---- < 40 40-60 >60 . Performed By: #### L IPID #### [address] [address] Cholesterol in LDL [Mass/Vol] 164 mg/dL High 0 - 99 [facility] Comment on above: Result Comment: . NEAR BORD AGE DESIRABLE OPTIMAL HIGH HIGH VERY HIGH 0-19 Y 0 - 109 --- 110-129 >/= 130 ---- 20-24 Y 0 - 119 --- 120-159 >/= 160 ---- >24 Y 0 - 99 100-129 130-159 160-189 >/=190 . Performed By: #### L IPID #### [address] [address] Cholesterol in VLDL [Mass/Vol] 41 mg/dL High 0 - 40 [facility] Comment on above: Performed By: #### L IPID #### [address] [address] Cholesterol.total/ Cholesterol in HDL [Mass ratio] 7.0 {ratio} Abnormal [facility] Comment on above: Result Comment: REF VALUES DESIRABLE < 3.4 HIGH RISK > 5.0 Performed By: #### L IPID #### [address] [address] NON-HDL CHOLESTEROL 205 mg/dL Normal [facility] Comment on above: Result Comment: AGE DESIRABLE BORDERLINE HIGH HIGH VERY HIGH 0-19 Y 0 - 119 120 - 144 >/= 145 >/= 160 20-24 Y 0 - 149 150 - 189 >/= 190 ---- >24 Y 30 MG/DL ABOVE LDL CHOLESTEROL GOAL . Performed By: #### L IPID #### [place] [id number] Triglyceride [Mass/Vol] 204 mg/dL High 0 - 149 [facility] Comment on above: Result Comment: . AGE DESIRABLE BORDERLINE HIGH HIGH VERY HIGH 0 D-90 D 19 - 174 ---- ---- ---- 91 D- 9 Y 0 - 74 75 - 99 >/= 100 ---- 10-19 Y 0 - 89 90 - 129 >/= 130 ---- 20-24 Y 0 - 114 115 - 149 >/= 150 ---- >24 Y 0 - 149 150 - 199 200- 499 >/= 500 . Venipuncture immediately after or during the administration of Metamizole may lead to falsely low results. Testing should be performed immediately prior to Metamizole dosing. Performed By: #### L IPID #### [place] [id number] Laboratory - Chemistry and C hemistry - challengeon 01-04-2022 Anion gap [Moles/Vol] 12 mmol/L 10 - 20 [facility] Work Phone: Calcium [Mass/Vol] 9.2 mg/dL 8.6 - 10.3 [facility] Work Phone: Chloride [Moles/Vol] 104 mmol/L 98 - 107 [facility] Work Phone: CO2 [Moles/Vol] 25 mmol/L 21 - 32 [facility] Work Phone: Creatinine [Mass/Vol] 0.73 mg/dL See Below [facility] Work Phone: Comment on above: Reference Range: 0.5 0 - 1.05 Glucose [Mass/Vol] 85 mg/dL 74 - 99 [facility] Work Phone: Potassium [Moles/Vol] 4.2 mmol/L 3.5 - 5.3 [facility] Work Phone: Sodium [Moles/Vol] 137 mmol/L 136 - 145 [facility] Work Phone: TSH Qn 2.36 m[IU]/L See Below [facility] Work Phone: Comment on above: Reference Range: 0.4 4 - 3.98 TSH testing is performed using different testing methodology at [facility] than at other legacy [facility]. Direct result comparisons should only be made within the same method. Urea nitrogen [Mass/Vol] 11 mg/dL 6 - 23 [facility] Work Phone: Laboratory - Serology - non- microon 01-04-2022 Nuclear Ab Hep2 substrate Ql (S) Negative NEGATIVE [facility] Work Phone: Comment on above: The Antinuclear Anti body (LAMONT) test was performed using indirect immunofluorescence assay with HEp-2 cells slide. Lipid Panelon 01-04-2022 Cholesterol [Mass/Vol] 239 mg/dL above high threshold 0 - 199 [facility] Work Phone: Comment on above: . AGE DESIRABLE BORD OLIVER HIGH HIGH 0-19 Y 0 - 169 170 - 199 >/= 200 20-24 Y 0 - 189 190 - 224 >/= 225 >24 Y 0 - 199 200 - 239 >/= 240 All ranges are based on fasting samples. Specific therapeutic targets will vary based on patient-specific cardiac risk.. Pediatric guidelines reference:Pediatrics 2011, 128(S5). Adult guidelines reference: NCEP ATPIII Guidelines, JOSE 2001, 258:2486-97. Venipuncture immediately after or during the administration of Metamizole may lead to falsely low results. Testing should be performed immediately prior to Metamizole dosing. Cholesterol in HDL [Mass/Vol] 34.0 mg/dL Abnormal [facility] Work Phone: Comment on above: . AGE VERY LOW LOW N ORMAL HIGH 0-19 Y < 35 < 40 40-45 ---- 20- 24 Y ---- < 40 >45 ---- >24 Y ---- < 40 40-60 >60. Cholesterol in LDL [Mass/Vol] 164 mg/dL above high threshold 0 - 99 [facility] Work Phone: Comment on above: . NEAR BORD AGE EARNEST RABLE OPTIMAL HIGH HIGH VERY HIGH 0-19 Y 0 - 109 --- 110-129 >/= 130 ---- 20-24 Y 0 - 119 --- 120-159 >/= 160 ---- >24 Y 0 - 99 100-129 130-159 160-189 >/=190. Cholesterol non HDL [Mass/Vol] 205 mg/dL [facility] Work Phone: Comment on above: AGE DESIRABLE BORDER LINE HIGH HIGH VERY HIGH 0-19 Y 0 - 119 120 - 144 >/= 145 >/= 160 20-24 Y 0 - 149 150 - 189 >/= 190 ---- >24 Y 30 MG/DL ABOVE LDL CHOLESTEROL GOAL. Cholesterol.total/ Cholesterol in HDL [Mass ratio] 7.0 {ratio} Abnormal [facility] Work Phone: Comment on above: REF VALUESDESIRABLE < 3.4HIGH RISK > 5.0 Triglyceride [Mass/Vol] 204 mg/dL above high threshold 0 - 149 [facility] Work Phone: Comment on above: . AGE DESIRABLE BORD OLIVER HIGH HIGH VERY HIGH 0 D-90 D 19 - 174 ---- ---- ----91 D- 9 Y 0 - 74 75 - 99 >/= 100 ---- 10-19 Y 0 - 89 90 - 129 >/= 130 ---- 20-24 Y 0 - 114 115 - 149 >/= 150 ---- >24 Y 0 - 149 150 - 199 200- 499 >/= 500. Venipuncture immediately after or during the administration of Metamizole may lead to falsely low results. Testing should be performed immediately prior to Metamizole dosing. Lipid Panel 41 mg/dL above high threshold 0 - 40 [facility] Work Phone: No Panel Informationon 01-04 Nearly every day - 3 -A [facility] Work Phone: Severe Anxiety [facility] Work Phone: Extremely difficult -As [facility] Work Phone: Comment on above: How difficult have t hose problems made it for you to do your work, take care of things at home, or get along with other people? 21 1 [facility] Work Phone: Comment on above: Over the last two we eks, how often have you been bothered by the following problems? Feeling nervous, anxious, or on edge: Nearly every day - 3Not being able to stop or control worrying: Nearly every day - 3Worrying too much about different things: Nearly every day - 3Trouble relaxing: Nearly every day - 3Being so restless that it's hard to sit still: Nearly every day - 3Becoming easily annoyed or irritable: Nearly every day - 3Feeling afraid as if something awful might happen: Nearly every day - 3 >90 >90 [facility] Work Phone: Comment on above: CALCULATIONS OF KAYDEN MATED GFR ARE PERFORMED USING THE 2020 CKD-EPI STUDY REFIT EQUATION WITHOUT THE RACE VARIABLE FOR THE IDMS-TRACEABLE CREATININE METHODS.https://jasn.asnjournals.org/content//ASN.2 790231486 Office Visit (Family Dilia kennedy)on 01-04-2022 Follow-up visit Diagnoses/Problems Morbid obesity with BMI of 40.0-44.9, adult (278.01,V85.41) (E66.01,Z68.41) Fibromyalgia (729.1) (M79.7) Fatigue (780.79) (R53.83) Orders Fatigue LAMONT-WITH REFLEX TO CHARLEEN; Status:In Progress - Specimen/Data Collected; Done: 04Jan2022 Basic Metabolic Panel; Status:In Progress - Specimen/Data Collected; Done: 04Jan2022 Complete Blood Count + Differential; Status:In Progress - Specimen/Data Collected; Done: 04Jan2022 Hemoglobin A1C; Status:In Progress - Specimen/Data Collected; Done: 04Jan2022 Lipid Panel; Status:In Progress - Specimen/Data Collected; Done: [id number] TSH WITH REFLEX TO FREE T4 IF ABNORMAL; Status:In Progress - Specimen/Data Collected; Done: [id number] Fibromyalgia Start: DULoxetine HCl - 30 MG Oral Capsule Delayed Release Particles (Cymbalta); TAKE 1 CAPSULE TWICE DAILY Follow-up visit in 1 month Outpatient Follow-up Status: Complete Done: 04Jan2022 SCHEDULED FOR... OV FEBRUARY 02 2022 @ 1:15 Provider Impressions Discussed diet and exercise, including Mediterranean diet, to improve BMI. For pain/paresthesias we will do trial of Cymbalta, follow up in 1 month to check medication efficacy, discussed side effects of Cymbalta including suicidal ideation. Labs today, will call with abnormal results, follow up in 1 month. Chief Complaint pt c/o b/l hand pain and numbness x 6 month , would like blood work to check BG, c/o feeling fatigued. Adult Risk Screening Depression/Suicide Screening: During the past 2 weeks, the patient felt down, depressed or hopeless. During the past 2 weeks, the patient felt little interest or pleasure in doing things. PHQ-9 Depression Scale: 1. Little interest or pleasure in doing things - nearly every day 2. Feeling down, depressed or hopeless - nearly every day 3. Trouble falling asleep or sleeping too much - nearly every day 4. Feeling tired or having little energy - nearly every day 5. Poor appetite or overeating - nearly every day 6. Feeling bad about self or failure or letting others down - more than half the days 7. Trouble concentrating on things - more than half the days 8. Moving / speaking slowly or fidgety / restless - more than half the days 9. Thought would be better off or hurting self - not at all Total Score: 21/27 Severity of depression is severe. How difficult have these problems made it for you to do your work, take care of things at home, or get along with people? Extremely difficult. History of Present Illness Ms. Mchugh presents today for hand pain/numbness x 6 months, ranges from 2-7/10 in pain severity. No alleviating/aggravating factors. She is right hand dominant. Similar symptoms in bilateral feet but milder. Denies history of spinal injury, no injury to extremities. History of depression with anxiety, follows with psych at [facility]. Fatigue - Has been feeling sluggish, would like to check A1C and CBC to check sugar and hemoglobin. 'Scores and Scales' ROSEY-7 [id number] ROSEY-7 Total Score21 Feeling nervous, anxious or on edgeNearly every day - 3 Not being able to stop or control worryingNearly every day - 3 Worrying too much about different thingsNearly every day - 3 Trouble relaxingNearly every day - 3 Being so restless that it's hard to sit stillNearly every day - 3 Becoming easily annoyed or irritableNearly every day - 3 Feeling afraid as if something awful might happenNearly every day - 3 Review of Systems Constitutional - yes fatigue, no fever, no chills, no recent weight gain/loss Eyes - no blurred vision, no diplopia ENT - no hearing loss, no earache, no sore throat, no swollen glands in the neck and no nasal discharge Cardiovascular - no chest pain, no palpitations and no lower extremity edema Respiratory - no shortness of breath, no chronic cough and no shortness of breath on exertion Gastrointestinal - no abdominal pain, no dysuria, no hematuria MSK - yes hand/foot pain and paresthesia, no back pain, no arthralgias Skin - no rashes, no skin lesions Neurological - no weakness, no headaches, no dizziness Psychiatric - yes anxiety, yes depression, no confusion Active Problems Bipolar depression (296.50) (F31.9) Body mass index (BMI) of 40.0 to 44.9 in adult (V85.41) (Z68.41) Depression with anxiety (300.4) (F41.8) Disc degeneration, lumbar (722.52) (M51.36) Hyperlipidemia (272.4) (E78.5) Impaired fasting glucose (790.21) (R73.01) Low back pain (724.2) (M54.50) Radiculopathy, lumbar region (724.4) (M54.16) Surgical History History of Appendectomy History of Cerebrospinal fluid shunt creation History of Gallbladder surgery History of Knee surgery right knee tumor removed History of Tubal ligation bilateral Family History Family history of type 2 diabetes mellitus (V18.0) (Z83.3) Family history of type 2 diabetes mellitus (V18.0) (Z83.3) Family history of blood clots (V18.3) (Z82.49) Family history of lung cancer (V16.1) (Z80.1) Family histor (more content not included)... Normal [facility] TSH WITH REFLEX TO FREE T4 I F ABNORMALon 01-04-2022 TSH Qn 2.36 m[IU]/L Normal 0.44 - 3.98 [facility] Comment on above: Result Comment: TSH testing is performed using different testing methodology at [facility] than at formerly [facility]. Direct result comparisons should only be made within the same method. Performed By: #### T HYDS #### [place] [address] Tobacco Screening.on 022 Adult depression screening assessment Yes [facility] Work Phone: Tobacco use status CPHS a) Yes [facility] Work Phone: Tobacco Screening. Yes [facility] Work Phone: Therapy Communicationon Therapy Communication Message Per attendance policy, will discharge and remove patient from schedule secondary to multiple, consecutive, NC/NS's. Signatures Electronically signed by : Stephan Lyon PTA; Jul 23 2021 10:17AM EST (Author) Normal [facility] PT Progress Noteon 1 PT Progress Note No report was sent Normal [facility] Therapy Communicationon Therapy Communication Message CHERYL MCHUGH no showed today . Signatures Electronically signed by : Es Hurtado PTA; Jul 17 2021 10:17AM EST (Author) Normal [facility] PT Progress Noteon 1 PT Progress Note No report was sent Normal [facility] Therapy Communicationon 0 Therapy Communication Message CHERYL MCHUGH no showed today . Signatures Electronically signed by : Es Hurtado PTA; Jul 15 2021 10:25AM EST (Author) Normal [facility] PT Progress Noteon 1 PT Progress Note No report was sent [facility] Therapy Communicationon 06-16 Therapy Communication Message CHERYL MCHUGH no showed today 07/13/21. No Call, No Show attempted to call left VM to return call to clinic. Signatures Electronically signed by : Susanna Santiago PTA; Jul 13 2021 10:33AM EST (Author) Normal [facility] PT Progress Noteon 1 PT Progress Note Therapy Diagnosis Assessed Low back pain (724.2) (M54.5) Disc degeneration, lumbar (722.52) (M51.36) Radiculopathy, lumbar region (724.4) (M54.16) Plan Goals: Goals set and discussed today. 1. Independent HEP to allow for 50% reduction in max ADL C/C sx ( 07/24) 2-3wks 2. 0/10 night time sx to allow for uninterrupted sleep x1wk ( 05/20) 2-3wks 3. Survey score improvement from 34% to 25% (NUNO) 3-4wks 4. ROM increase to allow for improved ADL dressing lowers, car transfers (from 40 to 75% SFB) 3-4wks 5. Strength increase to allow for improved ADL carrying, walking (from gr3+ to gr4+ abdominals) 3-4wks Planned interventions include: aquatic therapy, cryotherapy, dry needling, education/instruction, electrical stimulation, gait training, home program, hot pack, kinesiotaping, manual therapy, self care/home management and therapeutic exercises. Frequency and duration: 3 time(s) a week, for 3 weeks, for 9 visits . x6 pool; x3 land. Potential to achieve rehab goals is fair: chronic syndrome Continue with core stability to improve car transfers and standing. Progress with POC, as tolerated. Assessment Patient tolerated treatment without increased pain. Patient has weak TrA and attempts to keep intact with ther-ex. Patient needing one UE support with LE ther-ex and with 100% unloading. Patient has good form/understanding with ther-ex and keeps body in good alignment. Continue with core stability while performing dyn activity to decrease back pain. Adult Risk Screening There are no spiritual/cultural practices/values/needs that are important to know Initial Fall Risk Screening: CHERYL has not fallen in the last 6 months. CHERYL does not have a fear of falling. She does not need assistance with sitting, standing or walking. Does not need assistance walking in her home. She does not need assistance in an unfamiliar setting. The patient is not using an assistive device. Fall Risk Screening: Patient is identified as a fall risk. Care Plan: Low Risk: Environmental for all patients and low risk patients: Offer assistance as needed or requested, keep environment free of obstacles, keep floor clean and dry, keep room lighting, wheelchair brakes on, bed/ stretcher locked and in low position if applicable, non-slip footwear if applicable, walker/cane available if needed, side rails up if applicable and pre-emptive toileting. Low: current pain and multiple or pertinent current diagnoses. Pain Scale: On a scale of 0 to 10, the patient rates the pain at 9. Please identify location of pain: LB; B butt; B posterior thighs to the knees. Insurance Insurance reviewed Visit number: 4 [place] 30v Evaluating therapist Jeramie Arshad PT. M54.5; M51.36; M54.16; low fall risk Subjective Patient reports:. Patient reports no falls and no to all covid questions. Patient reports 7/10 low back pain. Post aquatics states 6/10 low back pain. Precautions: Fall Risk: low Pertinent medical HX includes: migraines; bipolar. Treatment Time in clinic started at 9:15 am Time in clinic ended at 10:00 am Total time in clinic is 45 minutes. Total timed code time is 42 minutes. Aquatic Therapy (65934):. SIDESTEPPING 3 laps Heel raises x 12 Squats x 12 Hip Flexion x 12 Hip Abd/add x 12 Alt. january steps x 12 DB ROLLS Switzer [address] ABDOMINALS sm. blue board x 12 ea. Flexion, Push/pull UE PADDLES x 20 reps each OPEN Flex/ext, abd/add, H. abd/add, push/pull 100% UNLOADING 1 noodle Bike 5' Hip abd/add 5' Hang 5' GRADUAL EXIT 3'. 'Scores and Scales' Signatures Electronically signed by : Es Huratdo, HISTOPATHOLOGY TECHNICIAN; Jul 10 2021 10:01AM EST (Author) Electronically signed by : Yoseph Arshad, PT; Jul 10 2021 11:24AM EST Normal [facility] PT Progress Noteon PT Progress Note Therapy Diagnosis Assessed Low back pain (724.2) (M54.5) Disc degeneration, lumbar (722.52) (M51.36) Radiculopathy, lumbar region (724.4) (M54.16) Plan Goals: Goals set and discussed today. 1. Independent HEP to allow for 50% reduction in max ADL C/C sx ( 07/24) 2-3wks 2. 0/10 night time sx to allow for uninterrupted sleep x1wk ( 05/20) 2-3wks 3. Survey score improvement from 34% to 25% (NUNO) 3-4wks 4. ROM increase to allow for improved ADL dressing lowers, car transfers (from 40 to 75% SFB) 3-4wks 5. Strength increase to allow for improved ADL carrying, walking (from gr3+ to gr4+ abdominals) 3-4wks Planned interventions include: aquatic therapy, cryotherapy, dry needling, education/instruction, electrical stimulation, gait training, home program, hot pack, kinesiotaping, manual therapy, self care/home management and therapeutic exercises. Frequency and duration: 3 time(s) a week, for 3 weeks, for 9 visits . x6 pool; x3 land. Potential to achieve rehab goals is fair: chronic syndrome Continue with core strength to improve carrying, walking, car transfers. Progress with POC, as tolerated. Assessment Patient tolerated treatment without increased pain. Patient has weak TrA and attempts to keep intact with ther-ex. Patient needing one UE support with LE ther-ex and with 100% unloading. Patient uses slow, controlled movements and keeps body in good alignment. Continue with core stability while performing dyn activity to decrease back pain. Adult Risk Screening There are no spiritual/cultural practices/values/needs that are important to know Initial Fall Risk Screening: CHERYL has not fallen in the last 6 months. CHERYL does not have a fear of falling. She does not need assistance with sitting, standing or walking. Does not need assistance walking in her home. She does not need assistance in an unfamiliar setting. The patient is not using an assistive device. Fall Risk Screening: Patient is identified as a fall risk. Care Plan: Low Risk: Environmental for all patients and low risk patients: Offer assistance as needed or requested, keep environment free of obstacles, keep floor clean and dry, keep room lighting, wheelchair brakes on, bed/ stretcher locked and in low position if applicable, non-slip footwear if applicable, walker/cane available if needed, side rails up if applicable and pre-emptive toileting. Low: current pain and multiple or pertinent current diagnoses. Pain Scale: On a scale of 0 to 10, the patient rates the pain at 9. Please identify location of pain: LB; B butt; B posterior thighs to the knees. Insurance Insurance reviewed Visit number: 3 [place] 30v Evaluating therapist Jeramie Arshad PT. M54.5; M51.36; M54.16; low fall risk Subjective Patient reports:. Patient reports no falls and no to all covid questions. Patient reports pain of 6/10 low back. Reports MD chirinos yesterday in [place] and car ride made her sore. Patient reports since last visit and carry over effect for about one hour, then pain came right back. Post aquatics states 5/10 low back pain. Precautions: Fall Risk: low Pertinent medical HX includes: migraines; bipolar. Treatment Time in clinic started at 10:00 am Time in clinic ended at 10:45 am Total time in clinic is 45 minutes. Total timed code time is 42 minutes. Aquatic Therapy (87931):. SIDESTEPPING 3 laps Heel raises x 12 Squats x 12 Hip Flexion x 12 Hip Abd/add x 12 Alt. january steps x 12 DB ROLLS Switzer [address]. ABDOMINALS sm. blue board x 12 ea. Flexion, Push/pull UE PADDLES x 20 reps each OPEN Flex/ext, abd/add, H. abd/add, push/pull 100% UNLOADING 1 noodle Bike 5' Hip abd/add 5' Hang 5' GRADUAL EXIT 3'. 'Scores and Scales' Signatures Electronically signed by : Es Hurtado PTA; Aug 25 2021 10:42AM EST (Author) Electronically signed by : Yoseph Arshad, PT; Jul 08 2021 2:56PM EST Normal [facility] PT Progress Noteon PT Progress Note Therapy Diagnosis Assessed Low back pain (724.2) (M54.5) Radiculopathy, lumbar region (724.4) (M54.16) Plan Goals: Goals set and discussed today. 1. Independent HEP to allow for 50% reduction in max ADL C/C sx ( 07/24) 2-3wks 2. 0/10 night time sx to allow for uninterrupted sleep x1wk ( 05/20) 2-3wks 3. Survey score improvement from 34% to 25% (NUNO) 3-4wks 4. ROM increase to allow for improved ADL dressing lowers, car transfers (from 40 to 75% SFB) 3-4wks 5. Strength increase to allow for improved ADL carrying, walking (from gr3+ to gr4+ abdominals) 3-4wks Planned interventions include: aquatic therapy, cryotherapy, dry needling, education/instruction, electrical stimulation, gait training, home program, hot pack, kinesiotaping, manual therapy, self care/home management and therapeutic exercises. Frequency and duration: 3 time(s) a week, for 3 weeks, for 9 visits . x6 pool; x3 land. Potential to achieve rehab goals is fair: chronic syndrome Continue with core strength to improve lower body dressing/car transfers. Progress with POC, as tolerated. Assessment Patient orientated to pool. Patient tolerated treatment without increased pain. Patient has good form/understanding with ther-ex, once shown. Keeps body in good alignment. Patient has weak TrA and attempts to keep intact with ther-ex. Continue with core stability while performing dyn activity to decrease back pain. Adult Risk Screening There are no spiritual/cultural practices/values/needs that are important to know Initial Fall Risk Screening: CHERYL has not fallen in the last 6 months. CHERYL does not have a fear of falling. She does not need assistance with sitting, standing or walking. Does not need assistance walking in her home. She does not need assistance in an unfamiliar setting. The patient is not using an assistive device. Fall Risk Screening: Patient is identified as a fall risk. Care Plan: Low Risk: Environmental for all patients and low risk patients: Offer assistance as needed or requested, keep environment free of obstacles, keep floor clean and dry, keep room lighting, wheelchair brakes on, bed/ stretcher locked and in low position if applicable, non-slip footwear if applicable, walker/cane available if needed, side rails up if applicable and pre-emptive toileting. Low: current pain and multiple or pertinent current diagnoses. Pain Scale: On a scale of 0 to 10, the patient rates the pain at 9. Please identify location of pain: LB; B butt; B posterior thighs to the knees. Insurance Insurance reviewed Visit number: 2 [place] 30v Evaluating therapist Jeramie Arshad PT. M54.5; M51.36; M54.16; low fall risk Subjective Patient reports:. Patient reports no falls and no to all covid questions. Patient reports pain of 6/10 in low back with Aleve taken several hours ago. Post aquatics states 5/10 low back pain. Precautions: Fall Risk: low Pertinent medical HX includes: migraines; bipolar. Treatment Time in clinic started at 1:45 pm Time in clinic ended at 2:30 pm Total time in clinic is 45 minutes. Total timed code time is 40 minutes. Aquatic Therapy (91221):. SIDESTEPPING 3 laps Heel raises x 12 Squats x 12 Hip Flexion x 12 Hip Abd/add x 12 Alt. march steps x 12 DB ROLLS Switzer 30 ea. dir. ABDOMINALS sm. blue board x 12 ea. Flexion, Push/pull UE PADDLES x 20 reps each OPEN Flex/ext, abd/add, H. abd/add, push/pull 100% UNLOADING 1 noodle Bike 5' Hip abd/add 5' Hang 5' GRADUAL EXIT 3'. Treatment Performed Today:. trunk mech ed hooklying TA set 10 x 2 count hold wall lean n minisquat x10 seated row x10 seated H add x10 ea pool unloading/core work-A land core work/trunk ROM-A. Evaluation Code: 21660 PT Eval: Low Complexity, 40 min(s). Timed: 12 min(s), 1 unit(s). Resources provided today: HEP/postural handout; Tband. 'Scores and Scales' Signatures Electronically signed by : Es Hurtado PTA; Jul 06 2021 2:14PM EST (Author) Electronically signed by : Yoseph Arshad, PT; Jul 06 2021 3:37PM EST Normal [facility] PT Initial Evaluationon 06-14 PT Initial Evaluation Therapy Diagnosis Assessed Disc degeneration, lumbar (722.52) (M51.36) Radiculopathy, lumbar region (724.4) (M54.16) Low back pain (724.2) (M54.5) Plan of Care Goals: Goals set and discussed today. 1. Independent HEP to allow for 50% reduction in max ADL C/C sx ( 07/24) 2-3wks 2. 0/10 night time sx to allow for uninterrupted sleep x1wk ( 05/20) 2-3wks 3. Survey score improvement from 34% to 25% (NUNO) 3-4wks 4. ROM increase to allow for improved ADL dressing lowers, car transfers (from 40 to 75% SFB) 3-4wks 5. Strength increase to allow for improved ADL carrying, walking (from gr3+ to gr4+ abdominals) 3-4wks Planned interventions include: aquatic therapy, cryotherapy, dry needling, education/instruction, electrical stimulation, gait training, home program, hot pack, kinesiotaping, manual therapy, self care/home management and therapeutic exercises. Frequency and duration: 3 time(s) a week, for 3 weeks, for 9 visits . x6 pool; x3 land. Potential to achieve rehab goals is fair: chronic syndrome Plan of care was developed with input and agreement by the patient. Assessment Present C/C sx for about 15yrs but worse the last 2 yrs. There is recent MRI and x-rays done. There is ++ findings for IVDD involvement per DX. She has had PT here as well as chirop/injection HX. She is a low fall risk. She also has scored a 12 on the PHQ-9 instrument today. Conitnue with pool unloading and core work. Will finish with land based core work and trunk ROM as cathy. Clinical Presentation: Stable and/or uncomplicated characteristics. Level of Complexity: low Problem List: activity limitations, ADLs/IADLs/self care skills, decreased functional level, decreased knowledge of HEP, decreased knowledge of precautions, fall risk, gait/locomotion, pain, range of motion/joint mobility, strength and transfers. Reason For Visit Initial Evaluation . IVDD lumbar; lumb radic; LBP. Referred by: Geetha Gutierrez MD Adult Risk Screening There are no spiritual/cultural practices/values/needs that are important to know Initial Fall Risk Screening: CHERYL has not fallen in the last 6 months. CHERYL does not have a fear of falling. She does not need assistance with sitting, standing or walking. Does not need assistance walking in her home. She does not need assistance in an unfamiliar setting. The patient is not using an assistive device. Fall Risk Screening: Patient is identified as a fall risk. Care Plan: Low Risk: Environmental for all patients and low risk patients: Offer assistance as needed or requested, keep environment free of obstacles, keep floor clean and dry, keep room lighting, wheelchair brakes on, bed/ stretcher locked and in low position if applicable, non-slip footwear if applicable, walker/cane available if needed, side rails up if applicable and pre-emptive toileting. Low: current pain and multiple or pertinent current diagnoses. Pain Scale: On a scale of 0 to 10, the patient rates the pain at 9. Please identify location of pain: LB; B butt; B posterior thighs to the knees. Insurance Insurance reviewed Visit number: 1 [place] 30v Evaluating therapist Jeramie Arshad PT. M54.5; M51.36; M54.16; low fall risk Subjective Current Episode of Functional Impairment and/or Pain Date of onset: 07/02/19 Mechanism of Injury:. 15yr sx HX. Medical Screening: Reviewed medical history form with patient and medical screening assessed. Current Medical Management:. films taken 1mth ago; MRI done 2 mths ago; injections; chirop; PT here. Precautions: Fall Risk: low Pertinent medical HX includes: migraines; bipolar. Functional Assessment Prior level of function: PAINFUL, DIFFICULT, OR ALTERED ADL (marked with an xx ) sleep--XX sitting-- sit to standing transfers--XX car transfers--XX standing-- walking--XX carrying--XX stairs--XX dressing lowers--XX driving-- dressing uppers-- reaching---- handling objects-- other-- . Patient stated goal(s) for treatment include: relieving pain , increasing strength , increasing mobility , reducing symptoms , reducing/preventing future occurrences and learning preventative care measures . Work Status: unemployed. Current Status:. worse over the last 2 yrs. Patient Awareness: Patient is aware of her diagnosis and prognosis. Personal Factors That May Impact Care:. ID confirmed with B-day; speaks salvadorean No obtrusive barriers to learning identified/observed. Objective Ortho gr3+ abdominals. ROM / Joint Mobility (Range of Motion in degrees) Lumbar: ([place]glesby = P! Denotes Pain with Movement) Extension: Active 50%. Flexion: Active 40%. Side Bend: R Active 50%, L Active 75%. SFB irritated the LB the most. Neurological Right Myotomal Testing: L2 hip flexion normal, L3 knee extension normal, L4 ankle dorsiflexion, inversion normal, L5 great toe extension normal, S1 ankle plantar flexion and eversion normal Left Myotomal Testing: L2 hip flexion normal, L3 knee (more content not included)... Normal [facility] [employer] Therapy Communicationon 06-14 Therapy Communication Message CHERYL MCHUGH was (D/C)- last seen: . Cheryl has been seen in clinical physical therapy on 07/02 to 07/10/21 for 4 visit (s) ; there has been no further visits attended and x4 NSs; D/C from clinic PT. Signatures Electronically signed by : Yoseph Arshad PT; Jul 23 2021 10:21AM EST (Author) Normal [facility] [employer] Lumbar Spine 2 or 3 Viewson 05-13-2021 Lumbar Spine 2 or 3 Views [facility] Services [address] [place] [id number] Lumbar Spine 2 or 3 Views MR#: [id number] Acct: [id number] Name: CHERYL MCHUGH Rep #: [id number] : 1980 F 40 From: Mauricio Nolan MD PCP: VALENTINA CARLTON Status: REG CLI Study: Lumbar Spine 2 or 3 Views Date of Exam: Exam# [id number] Ordering Dr: Jesus Gutierrez MD STUDY: X-RAY - LUMBAR SPINE REASON FOR EXAM: Female, 40 years old. BACK PAIN TECHNIQUE: 3 view(s) of the lumbar spine were obtained. COMPARISON: None FINDINGS: Normal lumbar lordosis. There is no substantial scoliosis. There is a normal alignment of the vertebrae. Normal vertebral bodies and endplates. Normal disc space heights. The soft tissue structures are unremarkable. RAD/Lumbar Spine 2 or 3 Views IMPRESSION: Normal x-ray examination of the lumbar spine. Electronically Signed: Lowell Nolan MD at 16:55 EDT , Service support , CC: Dr. Jesus Gutierrez MD; VALENTINA CARLTON Supply Clerk: Signed Normal [facility] - Chemistry and C hemistry - challengeon 04-30-2021 Cholesterol [Mass/Vol] 248 mg/dL [facility] Work Phone: No Panel Informationon 04-30 More than 5 years ago [facility] Work Phone: Former [facility] Work Phone: [phone] False [facility] Work Phone: [phone] 182 mg/dL [facility] Work Phone: [phone] 34.0 mg/dL [facility] Work Phone: [phone] 40 {years} [facility] Work Phone: [phone] N/A [facility] Work Phone: [phone] 1.57 % [facility] Work Phone: [phone] Low Risk [facility] Work Phone: [phone] 0.37 % [facility] Work Phone: [phone] 2.15 % [facility] Work Phone: Comment on above: Age: 40Sex: FemaleRa ce: WhiteSystolic Blood Pressure: 124Diastolic Blood Pressure: 80Total Cholesterol: 248HDL Cholesterol: 34.0LDL Cholesterol: 182Diabetes: NoSmoker: FormerHow Long Ago Patient Quit Smoking: More than 5 years agoOn Hypertension Treatment: NoOn a Statin: NoOn Aspirin Therapy: NoRefine Current Risk Estimate Using Data from a Previous Visit: No 39 % [facility] Work Phone: Office Visit ([facility] e)on 04-28-2021 Follow-up visit Diagnoses/Problems Hyperlipidemia (272.4) (E78.5) Disc degeneration, lumbar (722.52) (M51.36) Bipolar depression (296.50) (F31.9) Depression with anxiety (300.4) (F41.8) Body mass index (BMI) of 40.0 to 44.9 in adult (V85.41) (Z68.41) Impaired fasting glucose (790.21) (R73.01) Orders Bipolar depression Renew: QUEtiapine Fumarate 300 MG Oral Tablet; TAKE 1 TABLET BY MOUTH EVERYDAY AT BEDTIME Disc degeneration, lumbar Pain Management Referral Evaluation and Treatment Evaluate AND Treat Status: Hold For - Scheduling Requested for: 28Apr2021 Hyperlipidemia Start: Fish Oil Burp-Less 1200 MG Oral Capsule; TAKE 1 CAPSULE Daily Start: Red Yeast Rice 600 MG Oral Capsule; TAKE 2 CAPSULE Daily Provider Impressions Bipolar depression/Anxiety- Her ROSEY-7 and PHQ-9 scores remain high, but she would like to continue current dose of Seroquel until she can see the psychiatrist. She agreed to seek emergent care if she develops any SI/HI. The phone number for Emerging Threats Suicide [employer] is . Degenerative disc disease- Refer to Dr. Herman for evaluation and management per patient request. She is not interested in PT at this time. Although we discussed that could improve her ROM, strength and pain. She verbalized understanding. Hyperlipidemia Prediabetes BMI 45- We discussed that diet and exercise could help improve these conditions. She did not want to start prescriptions Statins at this time. We discussed her 10 year Cardiac risk assessment of 21.5%. She should consume foods low in fat, high fiber, whole grains, fruits and vegetables. Add fatty fish, nuts, seeds, olive oils or other foods high in [place] 3 fatty acids. She verbalized understanding. She is willing to start fish oil supplements and Red yeast rice to cookie mixer helper in lowering her cholesterol. She is to exercise 30-60 minutes, 5-7 times weekly, and reduce her high sugar, processed food intake, as diabetes and hyperlipidemia can lead to heart disease, stroke, MID and premature . She verbalized agreement of above plan and understanding of all education provided. Follow up 3 months. Chief Complaint 1 month f/u, review labs. History of Present Illness degenerative disc- History of degenerative disc disease for the last several years . Reports that she was being treated with opioids in [place]. She has received steroid injections that she did not feel were effective. She is requesting a pain management consult today due to worsening pain, decreased range of motion. The pain is 8/10 and preventing her from sleeping at night. Mood disorder/Anxiety- Seroquel is working well for her. Reports good compliance, good tolerance, and good symptom improvement. Denies side effects. She is seeing a counselor every two weeks at [facility]. She has had two sessions thus far, and reports that she can see the psychiatrist for medication management after the her third counseling session. Denies SI. Hyperlipidemia- !0 year cardiac risk assessment 21.5%, denies chest pain, palpitations, leg claudication, Recognizes a need to improve improve diet and exercise. prediabetes- admits to eating large amounts of high sugar foods, does not monitor blood sugars. Denies excessive thirst or urination. Does not exercise regularly. Review of Systems Constitutional: no chills, not feeling tired and no fever. Eyes: no blurred vision. Cardiovascular: no chest pain, no intermittent leg claudication, no lower extremity edema, no palpitations and no syncope. Respiratory: no cough, no shortness of breath during exertion, no shortness of breath at rest and no wheezing. Gastrointestinal: no abdominal pain, no blood in stools, no constipation, no diarrhea, no melena, no nausea, no rectal pain and no vomiting. Genitourinary: no dysuria, no change in urinary frequency, no urinary hesitancy, no feelings of urinary urgency and no vaginal discharge. Musculoskeletal: back pain, but as noted in HPI. Neurological: no difficulty walking, no headache, no limb weakness, no numbness and no tingling. Psychiatric: anxiety, depression and anhedonia, but no homicidal thoughts, no sleep disturbances and no suicidal ideations. Active Problems Bipolar depression (296.50) (F31.9) Body mass index (BMI) of 40.0 to 44.9 in adult (V85.41) (Z68.41) Depression with anxiety (300.4) (F41.8) Impaired fasting glucose (790.21) (R73.01) Surgical History History of Appendectomy History of Cerebrospinal fluid shunt creation History of Gallbladder surgery History of Knee surgery right knee tumor removed History of Tubal ligation bilateral Family History Family history of type 2 diabetes mellitus (V18.0) (Z83.3) Family history of type 2 diabetes mellitus (V18.0) (Z83.3) Family history of blood clots (V18.3) (Z82.49) Family history of lung cancer (V16.1) (Z80.1) Family history of blood clots (V18.3) (Z82.49) Social History Current every day smoker (305.1) (F17.200) started age (more content not included)... Normal [facility] Tobacco Screening.on 021 Tobacco use status [facility] a) Yes [facility] Work Phone: Tobacco Screening. Yes [facility] Work Phone: HEMOGLOBIN A1Con 03-18-2021 Glucose [Mass/Vol] 126 mg/dL [facility] Comment on above: Performed By: #### H BA1E #### [facility] [address] [place] [address] HbA1c (Bld) [Mass fraction] 6.0 % [facility] Comment on above: Result Comment: Diag nosis of Diabetes-Adults Non-Diabetic: < or = 5.6% Increased risk for developing diabetes: 5.7-6.4% Diagnostic of diabetes: > or = 6.5% . Monitoring of Diabetes Age (y) Therapeutic Goal (%) Adults: >18 <7.0 Pediatrics: 13-18 <7.5 7-12 <8.0 0- 6 7.5-8.5 [employer]. Diabetes Care 33(S1), Nov 2009. Performed By: #### H BA1E #### [facility] [address] [place] [address] ALBUMIN, URINE SPOTon 2020 ALBUMIN,URINE <7.0 Normal Not Established [facility] Comment on above: Performed By: #### A LBSP #### [address] [address] ALBUMIN/CREAT RATIO SEE COMMENT Normal 0.0 - 30.0 [facility] Comment on above: Result Comment: One or more analytes used in this calculation is outside of the analytical measurement range. Calculation cannot be performed. Performed By: #### A LBSP #### [address] [address] CREATININE,URINE 69.0 mg/dL Normal 20.0 - 320.0 [facility] Comment on above: Performed By: #### A LBSP #### [address] [address] COMPREHENSIVE PANELon 2020 Albumin [Mass/Vol] 4.1 g/dL Normal 3.4 - 5.0 [facility] Comment on above: Performed By: #### C MP #### [address] [address] ALP [Catalytic activity/Vol] 76 U/L Normal 33 - 110 [facility] Comment on above: Performed By: #### C MP #### [address] [address] ALT [Catalytic activity/Vol] 14 U/L Normal 7 - 45 [facility] Comment on above: Result Comment: Nancy ents treated with Sulfasalazine may generate falsely decreased results for ALT. Performed By: #### C MP #### [address] [address] Anion gap [Moles/Vol] 12 mmol/L Normal 10 - 20 [facility] Comment on above: Performed By: #### C MP #### [address] [address] AST [Catalytic activity/Vol] 11 U/L Normal 9 - 39 [facility] Comment on above: Performed By: #### C MP #### [address] [address] Bilirubin [Mass/Vol] 0.3 mg/dL Normal 0.0 - 1.2 [facility] Comment on above: Performed By: #### C MP #### [place] [id number] Calcium [Mass/Vol] 9.5 mg/dL Normal 8.6 - 10.3 [facility] Comment on above: Performed By: #### C MP #### [place] [id number] Chloride [Moles/Vol] 105 mmol/L Normal 98 - 107 [facility] Comment on above: Performed By: #### C MP #### [place] [id number] Creatinine [Mass/Vol] 0.68 mg/dL Normal 0.50 - 1.05 [facility] Comment on above: Performed By: #### C MP #### [place] [id number] GFR- AM. >60 Normal >60 [facility] Comment on above: Result Comment: CALC ULATIONS OF ESTIMATED GFR ARE PERFORMED USING THE MDRD STUDY EQUATION FOR THE IDMS-TRACEABLE CREATININE METHODS. CLIN CHEM 2007;53:766-72 Performed By: #### C MP #### [place] [id number] GFR-NON AM. >60 Normal >60 [facility] Comment on above: Performed By: #### C MP #### [place] [id number] Glucose [Mass/Vol] 80 mg/dL Normal 74 - 99 [facility] Comment on above: Performed By: #### C MP #### [place] [id number] HCO3 (Bld) [Moles/Vol] 26 mmol/L Normal 21 - 32 [facility] Comment on above: Performed By: #### C MP #### [place] [id number] Potassium [Moles/Vol] 4.3 mmol/L Normal 3.5 - 5.3 [facility] Comment on above: Performed By: #### C MP #### [address] [address] Protein [Mass/Vol] 7.3 g/dL Normal 6.4 - 8.2 [facility] Comment on above: Performed By: #### C MP #### [address] [address] Sodium [Moles/Vol] 139 mmol/L Normal 136 - 145 [facility] Comment on above: Performed By: #### C MP #### [address] [address] Urea nitrogen [Mass/Vol] 10 mg/dL Normal 6 - 23 [facility] Comment on above: Performed By: #### C MP #### [address] [address] Hemoglobin A1Con 03-17-2021 Glucose [Mass/Vol] 126 mg/dL [facility] Work Phone: HbA1c (Bld) [Mass fraction] 6.0 % [facility] Work Phone: Comment on above: Diagnosis of Diabete s-Adults Non-Diabetic: < or = 5.6% Increased risk for developing diabetes: 5.7-6.4% Diagnostic of diabetes: > or = 6.5%. Monitoring of Diabetes Age (y) Therapeutic Goal (%) Adults: >18 <7.0 Pediatrics: 13-18 <7.5 7-12 <8.0 0- 6 7.5-8.5 [employer]. Diabetes Care 33(S1), Nov 2009. LIPID PANEL (CORONARY RISK 2 )on 03-17-2021 Cholesterol [Mass/Vol] 248 mg/dL High 0 - 199 [facility] Comment on above: Result Comment: . AGE DESIRABLE BORDERLINE HIGH HIGH 0-19 Y 0 - 169 170 - 199 >/= 200 20-24 Y 0 - 189 190 - 224 >/= 225 >24 Y 0 - 199 200 - 239 >/= 240 All ranges are based on fasting samples. Specific therapeutic targets will vary based on patient-specific cardiac risk. . Pediatric guidelines reference:Pediatrics 2011, 128(S5). Adult guidelines reference: NCEP ATPIII Guidelines, JOSE 2001, 258:2486-97 . Venipuncture immediately after or during the administration of Metamizole may lead to falsely low results. Testing should be performed immediately prior to Metamizole dosing. Performed By: #### L IPID #### [address] [address] Cholesterol in HDL [Mass/Vol] 34.0 mg/dL Abnormal [facility] Comment on above: Result Comment: . AGE VERY LOW LOW NORMAL HIGH 0-19 Y < 35 < 40 40-45 ---- 20-24 Y ---- < 40 >45 ---- >24 Y ---- < 40 40-60 >60 . Performed By: #### L IPID #### [address] [address] Cholesterol in LDL [Mass/Vol] 182 mg/dL High 0 - 99 [facility] Comment on above: Result Comment: . NEAR BORD AGE DESIRABLE OPTIMAL HIGH HIGH VERY HIGH 0-19 Y 0 - 109 --- 110-129 >/= 130 ---- 20-24 Y 0 - 119 --- 120-159 >/= 160 ---- >24 Y 0 - 99 100-129 130-159 160-189 >/=190 . Performed By: #### L IPID #### [address] [address] Cholesterol in VLDL [Mass/Vol] 32 mg/dL Normal 0 - 40 [facility] Comment on above: Performed By: #### L IPID #### [address] [address] Cholesterol.total/ Cholesterol in HDL [Mass ratio] 7.3 {ratio} Abnormal [facility] Comment on above: Result Comment: REF VALUES DESIRABLE < 3.4 HIGH RISK > 5.0 Performed By: #### L IPID #### [address] [address] Triglyceride [Mass/Vol] 158 mg/dL High 0 - 149 [facility] Comment on above: Result Comment: . AGE DESIRABLE BORDERLINE HIGH HIGH VERY HIGH 0 D-90 D 19 - 174 ---- ---- ---- 91 D- 9 Y 0 - 74 75 - 99 >/= 100 ---- 10-19 Y 0 - 89 90 - 129 >/= 130 ---- 20-24 Y 0 - 114 115 - 149 >/= 150 ---- >24 Y 0 - 149 150 - 199 200- 499 >/= 500 . Venipuncture immediately after or during the administration of Metamizole may lead to falsely low results. Testing should be performed immediately prior to Metamizole dosing. Performed By: #### L IPID #### [facility] [address] [id number] Laboratory - Chemistry and C hemistry - challengeon 03-17-2021 Albumin BCP dye [Mass/Vol] 4.1 g/dL 3.4 - 5.0 [facility] Work Phone: [phone] Albumin Ql (U) <7.0 See Below [facility] Work Phone: [phone] Comment on above: Reference Range: Not Established Albumin/Creatinine DL <= 20 mg/L (U) [Mass ratio] SEE COMMENT 0.0 - 30.0 [facility] Work Phone: Comment on above: One or more analytes used in this calculation is outside of the analytical measurement range.Calculation cannot be performed. ALP [Catalytic activity/Vol] 76 U/L 33 - 110 [facility] Work Phone: [phone] ALT With P-5'-P [Catalytic activity/Vol] 14 U/L 7 - 45 [facility] Work Phone: [phone] Comment on above: Patients treated wit h Sulfasalazine may generate falsely decreased results for ALT. Anion gap [Moles/Vol] 12 mmol/L 10 - 20 [facility] Work Phone: [phone] AST With P-5'-P [Catalytic activity/Vol] 11 U/L 9 - 39 [facility] Work Phone: [phone] Bilirubin [Mass/Vol] 0.3 mg/dL 0.0 - 1.2 [facility] Work Phone: [phone] Calcium [Mass/Vol] 9.5 mg/dL 8.6 - 10.3 [facility] Work Phone: Chloride [Moles/Vol] 105 mmol/L 98 - 107 [facility] Work Phone: CO2 [Moles/Vol] 26 mmol/L 21 - 32 [facility] Work Phone: Creatinine (U) [Mass/Vol] 69.0 mg/dL See Below [facility] Work Phone: Comment on above: Reference Range: 20. 0 - 320.0 Creatinine [Mass/Vol] 0.68 mg/dL See Below [facility] Work Phone: Comment on above: Reference Range: 0.5 0 - 1.05 Glucose [Mass/Vol] 80 mg/dL 74 - 99 [facility] Work Phone: Potassium [Moles/Vol] 4.3 mmol/L 3.5 - 5.3 [facility] Work Phone: Protein [Mass/Vol] 7.3 g/dL 6.4 - 8.2 [facility] Work Phone: Sodium [Moles/Vol] 139 mmol/L 136 - 145 [facility] Work Phone: Urea nitrogen [Mass/Vol] 10 mg/dL 6 - 23 [facility] Work Phone: Lipid Panelon 03-17-2021 Cholesterol [Mass/Vol] 248 mg/dL above high threshold 0 - 199 [facility] Work Phone: Comment on above: . AGE DESIRABLE BORD OLIVER HIGH HIGH 0-19 Y 0 - 169 170 - 199 >/= 200 20-24 Y 0 - 189 190 - 224 >/= 225 >24 Y 0 - 199 200 - 239 >/= 240 All ranges are based on fasting samples. Specific therapeutic targets will vary based on patient-specific cardiac risk.. Pediatric guidelines reference:Pediatrics 2011, 128(S5). Adult guidelines reference: NCEP ATPIII Guidelines, JOSE 2001, 258:2486-97. Venipuncture immediately after or during the administration of Metamizole may lead to falsely low results. Testing should be performed immediately prior to Metamizole dosing. Cholesterol in HDL [Mass/Vol] 34.0 mg/dL Abnormal [facility] Work Phone: Comment on above: . AGE VERY LOW LOW N ORMAL HIGH 0-19 Y < 35 < 40 40-45 ---- 20- 24 Y ---- < 40 >45 ---- >24 Y ---- < 40 40-60 >60. Cholesterol in LDL [Mass/Vol] 182 mg/dL above high threshold 0 - 99 [facility] Work Phone: Comment on above: . NEAR BORD AGE EARNEST RABLE OPTIMAL HIGH HIGH VERY HIGH 0-19 Y 0 - 109 --- 110-129 >/= 130 ---- 20-24 Y 0 - 119 --- 120-159 >/= 160 ---- >24 Y 0 - 99 100-129 130-159 160-189 >/=190. Cholesterol.total/ Cholesterol in HDL [Mass ratio] 7.3 {ratio} Abnormal [facility] Work Phone: Comment on above: REF VALUESDESIRABLE < 3.4HIGH RISK > 5.0 Triglyceride [Mass/Vol] 158 mg/dL above high threshold 0 - 149 [facility] [place] Phone: Comment on above: . AGE DESIRABLE BORD OLIVER HIGH HIGH VERY HIGH 0 D-90 D 19 - 174 ---- ---- ----91 D- 9 Y 0 - 74 75 - 99 >/= 100 ---- 10-19 Y 0 - 89 90 - 129 >/= 130 ---- 20-24 Y 0 - 114 115 - 149 >/= 150 ---- >24 Y 0 - 149 150 - 199 200- 499 >/= 500. Venipuncture immediately after or during the administration of Metamizole may lead to falsely low results. Testing should be performed immediately prior to Metamizole dosing. Lipid Panel 32 mg/dL 0 - 40 [facility] Work Phone: No Panel Informationon 03-17 Positive [facility] Work Phone: Comment on above: Q1: Yes, Q2: Yes, Q3 : Yes, Q4: Yes, Q5: No, Q6: Yes, Q7: Yes, Q8: Yes, Q9: Yes, Q10: No, Q11: No, Q12: Yes, Q13: No >60 >60 [facility] Work Phone: Comment on above: CALCULATIONS OF KAYDEN MATED GFR ARE PERFORMED USING THE MDRD STUDY EQUATION FOR THE IDMS-TRACEABLE CREATININE METHODS. CLIN CHEM 2007;53:766-72 Office Visit ([facility])on 03-17-2021 Follow-up visit Diagnoses/Problems Depression with anxiety (300.4) (F41.8) Bipolar depression (296.50) (F31.9) Impaired fasting glucose (790.21) (R73.01) Body mass index (BMI) of 40.0 to 44.9 in adult (V85.41) (Z68.41) Orders Bipolar depression Start: QUEtiapine Fumarate 300 MG Oral Tablet; TAKE 1 TABLET AT BEDTIME Adult Psychiatry Referral Evaluation and Treatment Evaluate AND Treat Status: Hold For - Scheduling Requested for: 17Mar2021 Impaired fasting glucose Albumin, Urine Spot; Status:Active; Requested for:[id number]; Comprehensive Metabolic Panel; Status:In Progress - Specimen/Data Collected; Done: [id number] Hemoglobin A1C; Status:In Progress - Specimen/Data Collected; Done: [id number] Lipid Panel; Status:In Progress - Specimen/Data Collected; Done: [id number] SocHx: Current every day smoker Tobacco Use Screening; Status:Complete; Done: [id number] Provider Impressions Bipolar/depression/anxie ty: PHQ-9 and ROSEY-7 show severe anxiety and moderately severe depression. will order quetiapine at her last dosage known to work. she states that she had no SE with this medication previously and she did experience good symptom control, it did help her sleep at night. No thoughts of suicide, self harm, or harming others. education provided on SE and medication administration. will place referral to psychiatry for evaluation and treatment plan. National suicide prevention hotline . She is to seek emergent help if she develops SI or HI. impaired fasting glucose: she states she does have a family history of diabetes, and personal history of elevated glucose lab results. will order labs to be completed today, and decide on further treatment plan once those are resulted. education provided on the importance of a well-balanced diet low in artificial sugars, weight loss and physical activity. BMI 44.0-44.9- consume foods low fat, high fiber, whole grains, fruits and vegetables. Cardiovascular exercise 30-60 minutes 5-7 days weekly. Labs: CMP, Hemoglobin A1C, lipid panel, Albumin, urine She is agreeable to above treatment plan, and verbalizes understanding of all education provided. Follow up in one month to assess medication effectiveness, and as needed. Chief Complaint pt to est, bipolar, anxiety and depression, sleeping issues. History of Present Illness Cheryl presents to the office today to establish a provider. She has a past history that includes bipolar manic-depressive, depression, and anxiety, which she was diagnosed many years ago. She is originally from [place], went to [place] for approximately five years, came back to [place] in August 2020 for family. She was seeing Dr. Rasheed Hernandez in [place]. She is not currently on any medications. She quit taking her medications in August, when she moved back to [place]. She was previously on Seroquel 300 mg every night, which helped greatly with her sleep. She has tried multiple different medications to help with depression and anxiety, and said that Xanax is the only medication that helps with anxiety. She states she previously went to psychiatrist approximately a year ago, but also stopped when she moved back to [place]. She reports currently feeling very anxious, aggravated, and annoyed. PHQ-9: 18 ROSEY-7: 18 mood disorder: positive Review of Systems Constitutional: no chills, no fever and no night sweats. Cardiovascular: no chest pain, no intermittent leg claudication, no lower extremity edema, no palpitations and no syncope. Respiratory: no cough, no shortness of breath during exertion, no shortness of breath at rest and no wheezing. Psychiatric: anxiety and depression, but no homicidal thoughts and no suicidal ideations. Surgical History History of Appendectomy History of Cerebrospinal fluid shunt creation History of Gallbladder surgery History of Knee surgery right knee tumor removed History of Tubal ligation bilateral Family History Family history of type 2 diabetes mellitus (V18.0) (Z83.3) Family history of type 2 diabetes mellitus (V18.0) (Z83.3) Family history of blood clots (V18.3) (Z82.49) Family history of lung cancer (V16.1) (Z80.1) Family history of blood clots (V18.3) (Z82.49) Social History Current every day smoker (305.1) (F17.200) started age 16 yr old, 1 1/2 ppd No advance directives (V49.89) (Z78.9) Allergies Wellbutrin very jittery; Recorded By: Hyacinth Ruiz; 03/17/2021 1:46:47 PM Current Meds Medication NameInstructionReason No Reported Medications Vitals Vital Signs Recorded: 17Mar2021 01:50PM Heart Rate80 Qiytidbg084, LUE Mpwsyjxsc05, LUE Height5 ft 8 in Xtgygx094 lb 15.95 oz BMI Rizapxeebo06.4 BSA Calculated2.4 Tobacco Usea) Yes Patient encouraged to stop using tobacco productsYes Physical Exam Constitutional: Alert and in no acute distress. Well developed, well nourished. obese. Cardiovascular: Heart rate and rhythm were normal, normal S1 and S2, no gallops, no murmurs and no pericardial rub. No hiral (more content not included)... [facility] Tobacco Screening.on Tobacco Screening. a) Yes [employer] [facility] Work Phone: [facility] Screening. Yes [facility] Work [facility]: ADULT SHUNT SERIESon 021 ADULT SHUNT SERIES Patient Name: CHERYL MCHUGH STUDY: ADULT SHUNT SERIES; ; 01/07/2021 1:50 am INDICATION: HEADACHE/NAUSEA/FEELS LIKE SHUNT NOT FUNCTIONING. COMPARISON: 10/08/2016 ACCESSION NUMBER(S): [id number] ORDERING CLINICIAN: ROSEANN VICK FINDINGS: Left occipital approach ventriculostomy catheter terminates in the left upper quadrant. There is a 4.5 cm long tubular foreign body projecting over the right iliac fossa that may represent a retained piece of catheter tubing. The lungs are clear. There is a nonobstructive bowel gas pattern. There close technical it is in tubal ligation clips noted. IMPRESSION: 4.5 cm piece of catheter tubing projects over the right iliac fossa, either from incomplete retrieval from shunt revision or due to discontinuity from the current tubing. No priors for comparison. The tip of the tubing otherwise terminates in the left upper quadrant. Electronically signed by: ENID BRASHER MD Normal [facility] BASIC METABOLIC PANELon - Anion gap [Moles/Vol] 12 mmol/L Normal 10 - 20 [facility] Comment on above: Performed By: #### B MP #### [place] [address] Calcium [Mass/Vol] 9.1 mg/dL Normal 8.6 - 10.3 [facility] Comment on above: Performed By: #### B MP #### [address] [id number] Chloride [Moles/Vol] 104 mmol/L Normal 98 - 107 [facility] Comment on above: Performed By: #### B MP #### [address] [address] Creatinine [Mass/Vol] 0.62 mg/dL Normal 0.50 - 1.05 [facility] Comment on above: Performed By: #### B MP #### [address] [address] GFR- AM. >60 Normal >60 [facility] Comment on above: Result Comment: CALC ULATIONS OF ESTIMATED GFR ARE PERFORMED USING THE MDRD STUDY EQUATION FOR THE IDMS-TRACEABLE CREATININE METHODS. CLIN CHEM 2007;53:766-72 Performed By: #### B MP #### [address] [address] GFR-NON AM. >60 Normal >60 [facility] Comment on above: Performed By: #### B MP #### [address] [address] Glucose [Mass/Vol] 130 mg/dL High 74 - 99 [facility] Comment on above: Performed By: #### B MP #### [address] [address] HCO3 (Bld) [Moles/Vol] 25 mmol/L Normal 21 - 32 [facility] Comment on above: Performed By: #### B MP #### [address] [address] Potassium [Moles/Vol] 3.6 mmol/L Normal 3.5 - 5.3 [facility] Comment on above: Performed By: #### B MP #### [address] [address] Sodium [Moles/Vol] 137 mmol/L Normal 136 - 145 [facility] Comment on above: Performed By: #### B MP #### [address] [address] Urea nitrogen [Mass/Vol] 9 mg/dL Normal 6 - 23 [facility] Comment on above: Performed By: #### B MP #### [address] [address] CBC AND DIFFERENTIALon 01-07 Basophils (Bld) [#/Vol] 0.10 10*3/uL Normal 0.00 - 0.10 [facility] Comment on above: Performed By: #### C BCDF #### [address] [address] Basophils/100 WBC (Bld) 1.1 % Normal 0.0 - 2.0 [facility] Comment on above: Performed By: #### C BCDF #### [address] [address] Eosinophils (Bld) [#/Vol] 0.00 10*3/uL Normal 0.00 - 0.70 [facility] Comment on above: Performed By: #### C BCDF #### [address] [address] Eosinophils/100 WBC (Bld) 0.0 % Normal 0.0 - 6.0 [facility] Comment on above: Performed By: #### C BCDF #### [address] [address] Erythrocyte distribution width (RBC) [Ratio] 14.2 % Normal 11.5 - 14.5 [facility] Comment on above: Performed By: #### C BCDF #### [address] [address] Hematocrit (Bld) [Volume fraction] 40.3 % Normal 36.0 - 46.0 [facility] Comment on above: Performed By: #### C BCDF #### [address] [address] Hemoglobin (Bld) [Mass/Vol] 13.2 g/dL Normal 12.0 - 16.0 [facility] Comment on above: Performed By: #### C BCDF #### [address] [address] Lymphocytes (Bld) [#/Vol] 4.20 10*3/uL Normal 1.20 - 4.80 [facility] Comment on above: Performed By: #### C BCDF #### [address] [address] Lymphocytes/100 WBC (Bld) 34.5 % Normal 13.0 - 44.0 [facility] Comment on above: Performed By: #### C BCDF #### [address] [address] MCHC (RBC) [Mass/Vol] 32.8 g/dL Normal 32.0 - 36.0 [facility] Comment on above: Performed By: #### C BCDF #### [address] [address] MCV (RBC) [Entitic vol] 90 fL Normal 80 - 100 [facility] Comment on above: Performed By: #### C BCDF #### [address] [address] Monocytes (Bld) [#/Vol] 1.20 10*3/uL High 0.10 - 1.00 [facility] Comment on above: Performed By: #### C BCDF #### [address] [address] Monocytes/100 WBC (Bld) 9.4 % Normal 2.0 - 10.0 [facility] Comment on above: Performed By: #### C BCDF #### [address] [address] Neutrophils (Bld) [#/Vol] 6.70 10*3/uL Normal 1.20 - 7.70 [facility] Comment on above: Result Comment: Perc ent differential counts (%) should be interpreted in the context of the absolute cell counts (cells/L). Performed By: #### C BCDF #### [address] [address] Neutrophils/100 WBC (Bld) 55.0 % Normal 40.0 - 80.0 [facility] Comment on above: Performed By: #### C BCDF #### [address] [address] NUCLEATED RBC 0.2 /100 WBC Normal [facility] Comment on above: Performed By: #### C BCDF #### [address] [address] Platelets (Bld) [#/Vol] 392 10*3/uL Normal 150 - 450 [facility] Comment on above: Performed By: #### C BCDF #### [address] [address] RBC 4.50 x10E12/L Normal 4.00 - 5.20 [facility] Comment on above: Performed By: #### C BCDF #### [address] [address] WBC (Bld) [#/Vol] 12.3 10*3/uL High 4.4 - 11.3 [facility] Comment on above: Performed By: #### C BCDF #### [address] [address] CORONAVIRUS 2019 BY PCRon DATE OF SYMPTOM ONSET [YYYYMMDD]? [id number] Normal [facility] Comment on above: Performed By: #### C OV19 #### [address] [address] Lab Specimen Source Nasal, Nasopharyngeal Normal [facility] Comment on above: Performed By: #### C OV19 #### [place] [address] SARS-CoV-2 (COVID-19) RNA TARIQ+probe Ql (Unsp spec) Not detected Normal Not Detected [facility] Comment on above: Result Comment: . This test has received FDA Emergency Use Authorization (EUA) and has been verified by [facility]. This test is only authorized for the duration of time that circumstances exist to justify the authorization of the emergency use of in vitro diagnostic tests for the detection of SARS-CoV-2 virus and/or diagnosis of COVID-19 infection under section 564(b)(1) of the Act, 21 U.S.C. 360bbb-3(b)(1), unless the authorization is terminated or revoked sooner. [facility] is certified under CLIA-88 as qualified to perform high complexity testing. Testing is performed in the [facility] laboratory located at [address] [place] [address]. SARS-CoV-2/Flu/RSV Multiplex Test: Fact sheet for providers: https://www.fda.gov/media/596761/download Fact sheet for patients: https://www.fda.gov/media/287692/download Performed By: #### C OV19 #### [place] [address] CT HEAD WO CONTRASTon 2020 CT HEAD WO CONTRAST Patient Name: CHERYL MCHUGH STUDY: CT HEAD WO CONTRAST; 01/07/2021 1:58 am INDICATION: HX OF DROSSER SHUNT, NOW W/HEADACHE, NAUSEA, R/O HYDROCEPHALUS/SHUNT FAILURE. COMPARISON: None. ACCESSION NUMBER(S): [id number] ORDERING CLINICIAN: ROSEANN VICK TECHNIQUE: Noncontrast axial CT images of head were obtained with coronal and sagittal reconstructed images. FINDINGS: BRAIN PARENCHYMA: There is a focal hypodensity in the anterior limb of the right internal capsule likely representing a chronic lacunar infarct. There is mild mass effect on the cerebellar vermis and occipital lobes due to a posterior fossa cyst described further below. No evidence of acute intraparenchymal hemorrhage or acute large territory ischemic infarct. No no midline shift. Alford-white matter distinction is preserved. VENTRICLES and EXTRA-AXIAL SPACES: The ventricles are normal in caliber. There is a left posterior fossa ventricular shunt catheter terminating adjacent the left cerebellar hemisphere. Visualized portions of the shunt catheter tubing are intact without focal kinking. In the midline posterior fossa there is a discrete cyst with mass effect on surrounding brain parenchyma that measures 6 cm x 4.6 cm x 3.6 cm likely representing an arachnoid cyst. There is widening of the CSF space between the left cerebellar hemisphere in the calvarium where the shunt catheter tubing terminates. There is no acute epidural, subdural, or subarachnoid hemorrhage. PARANASAL SINUSES/MASTOIDS: No hemorrhage or air-fluid levels within the visualized paranasal sinuses. The mastoids are well aerated. CALVARIUM/ORBITS: Postsurgical changes of suboccipital brenden hole and craniectomy for shunt catheter placement. No skull fracture. The orbits and globes are intact to the extent visualized. IMPRESSION: No evidence of obstructive hydrocephalus. Normal caliber of the ventricular system. Posterior fossa cyst measuring 6 cm x 4.6 cm x 3.6 cm with mild mass effect on the vermis and occipital lobes likely representing an arachnoid cyst. The shunt catheter tubing courses between the arachnoid cyst in the calvarium into the left aspect of the posterior fossa where there is widening of the CSF space and mild mass effect on the left cerebellar hemisphere. It is possible that the cyst wall obstructs the drainage of CSF due to mass effect on the catheter. Electronically signed by: ENID BRASHER MD [facility] Covid 19 Resultson 1 SARS-CoV-2 (COVID-19) RNA TARIQ+probe Ql (Unsp spec) NEGATIVE COVID-19 Test Coronaviruses are common world-wide and are the cause of many common colds. SARS-COV2 is a new coronavirus that began circulating worldwide in 2019 so we are calling it COVID-19. It has been estimated that four out of five patients with COVID-19 will recover at home without the need for medical attention. Symptoms of COVID-19 include cough, fever, shortness of breath, loss of taste or smell and other flu-like symptoms including chills, sore muscles, sore throat, and headache. Severe illness is more common in older people and people with other health problems such as high blood pressure, obesity, and immune system problems. If the test is positive, you have COVID-19. You will be contacted by the ordering physicians office and instructed to remain on home isolation, in accordance with CDC guidelines. You may also be contacted by the [facility] to see if any of your close contacts may have been exposed to the virus and need to quarantine. If the test is negative, you likely do not have COVID-19 at this time, but you still may have a different illness that can spread to other people (like Influenza, or the Flu) and could still be at risk for getting COVID-19. We recommend that you stay away from other people to limit the spread of illness until your symptoms are improving and you are fever-free for 24 hours without the use of fever lowering medications such as acetaminophen or ibuprofen. No test is 100% accurate so if you are still concerned you may have COVID-19, talk to your doctor about the need to continue to stay away from others. Medicines Acetaminophen (Tylenol and others) is generally safe. Anti-inflammatory medications, such as Ibuprofen (Advil or Motrin) or Naproxen (Aleve) can also be used. Eqvr-pss-bsvnkht cough and cold medicines can be used according to the instructions on the package. Some bybx-qhl-ptncsud medicines also contain acetaminophen. Make sure you are not taking more than your recommended dose For those not hospitalized, there is no specific treatment available for this illness. Antibiotics do not treat Coronaviruses. Follow-Up Follow up with your doctor by scheduling a virtual visit or consider follow-up at one of our urgent care fever clinics. If you are having difficulty breathing, or are very weak and having difficulty standing, this is a medical emergency. Call 911 or have someone take you to the nearest emergency room immediately. If possible, wear a facemask. Additional guidance from the CDC for patients who tested POSITIVE for COVID-19 How to isolate: Isolate yourself in a specific room at home and limit your contact with others. Use a separate bathroom from other members of the household, when possible. Leave home only to get essential medical care. Do not go to work, school or public areas. Avoid using public transportation, ride-sharing, or taxis. Restrict contact with pets and other animals. If you must care for your pet or be around animals while you are sick, wash your hands before and after your interaction and wear a facemask. Make sure that shared spaces in the home have good airflow, such as by an air conditioner or an opened window, weather permitting. Personal Hygiene Procedures: Wear a face mask when in the same room as other people or pets. If a face mask interferes with your breathing, others should wear a mask when sharing space with you. Frequent hand-washing: wash your hands with soap and water for at least 20 seconds. If soap and water are not available, use alcohol-based hand access consultant. Avoid touching your eyes, nose, and mouth with unwashed hands. Household Hygiene Procedures: Avoid sharing personal household items such as dishes, glassware, cups, eating utensils, towels or bedding with other people or pets in your home. After use, these items should be washed with soap and hot water. Disinfect all high-touch surfaces every day with antibacterial cleaning solutions such as Lysol wipes, bleach, cleansers, etc. High-touch surfaces include tabletops, doorknobs, bathroom fixtures, toilets, phones, keyboards, tablets and bedside tables. Immediately clean any surfaces that may have blood, poop or body fluids on them, using antibacterial cleaning solutions such as Lysol wipes, bleach, cleansers, etc. If clothing or bedding come into contact with blood, poop or body fluids, they should be washed immediately. Follow the directions on the laundry detergent and clothing labels but hot water is recommended when possible. Stopping home isolation precautions: If possible, consult your doctor before stopping home isolation precautions. According to the CDC, you can discontinue home isolation precautions when you have met both of these criteria: Your fever and respiratory symptoms have been gone for 24 hours without the use of any medicines like ibuprofen (Motrin) (more content not included)... Normal [facility] LACTATEon 01-07-2021 Lactate [Moles/Vol] 1.2 mmol/L Normal 0.4 - 2.0 [facility] Comment on above: Result Comment: Zahira puncture immediately after or during the administration of Metamizole may lead to falsely low results. Testing should be performed immediately prior to Metamizole dosing. Performed By: #### L ACT ####[place] [address] PT/INRon 01-07-2021 PT Coag (PPP) [Time] 12.2 s Normal 10.1 - 13.3 [facility] Comment on above: Performed By: #### P TINR ####[id number] [place] [address] PT, INR 1.0 Normal 0.9 - 1.1 [facility] Comment on above: Performed By: #### P TINR ####[address] [address] Provider Note - ED v2on 12-16 Provider Note - ED v2 Provider Note - ED v2: Chart Review: ED NOTES ED NOTES: CC=POSSIBLE SHUNT PROBLEM HPI-this is a 40-year-old female who has had a DROSSER shunt in place that was replaced 2 years ago at [facility] in [place]. She has not had any checks of the shunt since that time but complains of some headache nausea and pain over the course of the shunt when she woke up at 2:00 this afternoon. Complains of pain in the left posterior mastoid area where the shunt travels she also complains of pain in the left side of the chest near the shunt area also. Chapin nauseated and had a headache. He states it feels somewhat similar to when she had a shunt failure in the past. She denies any shortness of breath no fever chills no visual changes no weakness in the arms or legs. No other leaving worsening conditions. SH-is for smoking denies any alcohol consumption PM HX-as of her previous DROSSER shunt FH-noncontributory HISTORY OF PRESENTING ILLNESS CHERYL is a 40 year old Female and was seen by me at 07-Jan-2021 00:54 for a chief complaint of other (pt ambulatory to room with c/o shunt complication . 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 pt reports headache and nausea. pt reports this has happened about two years ago and shunt needed replaced. see MD at [facility]/[place]. denies vomiting, diarrhea. denies covid sx.)(1). Triage Information: Most recent Vital Sign Value Date Temp (F): 98.2 01-07-2021 00:59 Temp (C): 36.7 01-07-2021 00:59 Heart Rate (beats/min): 97 01-07-2021 00:59 Respirations (breaths/min): 20 01-07-2021 00:59 SpO2 (%): 98 01-07-2021 00:59 BP Systolic (mm Hg): 135 01-07-2021 00:59 BP Diastolic (mm Hg): 94 01-07-2021 00:59 PAST MEDICAL HISTORY ATTESTATION: I have reviewed and confirmed nurse's/medic's notes for patient's medications, allergies, and medical, surgical, family and social history CURRENT OR FORMER SUBSTANCE USE: YES: Cigarette/Tobacco ALLERGIES/INTOLERANCES: No Known Allergies HEALTH HISTORY: No documented data. OUTPATIENT MEDICATIONS: Home Medications Review Status for Reconciliation: N/A Med Status: N/A No documented data. SIGNIFICANT EVENTS: Past Medical History Description:Brain stem cyst Past Surgical History Description:Left side shunt MEAT PROCESS WORKER: Is : no(1) Is : no(1) CIGARETTE USE DETAIL: Cigarette Smoking Status: current every day smoker REVIEW OF SYSTEMS CONSTITUTIONAL: POSITIVE for: malaise Negative for: chills, fever and weakness EYES: Negative for: photophobia and vision changes ENMT Ears: Negative for: pain Nose: Negative for: congestion and discharge Throat/Neck: POSITIVE for: neck pain Negative for: hoarseness, neck stiffness and swollen glands CARDIOVASCULAR: POSITIVE for: chest pain Negative for: edema, orthopnea and palpitations RESPIRATORY: Negative for: dyspnea and hemoptysis GASTROINTESTINAL: POSITIVE for: nausea; Negative for: abdominal pain and vomiting; hematochezia and melena GENITOURINARY: Negative for: dysuria and frequency; MUSCULOSKELETAL: POSITIVE for: neck pain Negative for: stiffness and weakness INTEGUMENTARY: Negative for: petechiae and rash NEUROLOGICAL: POSITIVE for: headache; Negative for: altered mental status, dizziness, loss of function and low extremity numbness; upper extremity numbness HEME/LYMPH: Negative for: anemia, easy bleeding and easy bruising RESULTS/VITAL SIGNS RESULTS: Recent Lab Results: I have reviewed these laboratory results: Lactate, Level 07-Jan-2021 02:27:00 ResultValue Lactate, Level 1.2 Complete Blood Count + Differential 07-Jan-2021 01:35:00 ResultValue White Blood Cell Count 12.3 H Nucleated Erythrocyte Count 0.2 Red Blood Cell Count 4.50 HGB 13.2 HCT 40.3 MCV 90 MCHC 32.8 PLT 392 RDW-CV 14.2 Neutrophil % 55.0 Lymphocyte % 34.5 Monocyte % 9.4 Eosinophil % 0.0 Basophil % 1.1 Neutrophil Count 6.70 Lymphocyte Count 4.20 Monocyte Count 1.20 H Eosinophil Count 0.00 Basophil Count 0.10 Basic Metabolic Panel 07-Jan-2021 01:35:00 ResultValue Glucose, Serum 130 H NA 137 K 3.6 CL 104 Bicarbonate, Serum 25 Anion Gap, Serum 12 BUN 9 CREAT 0.62 GFR-Non >60 GFR- >60 Calcium, Serum 9.1 PT + INR, Plasma 07-Jan-2021 01:35:00 ResultValue Prothrombin Time, Plasma 12.2 International Normalized Ratio, Plasma 1.0 Troponin I, Serum 07-Jan-2021 01:35:00 ResultValue Troponin I, Serum <0.02 Radiology Results: Impression: 4.5 cm piece of catheter tubing projects over the right iliac fossa, either from incomplete retrieval from shunt revision or due to discontinuity from the current tubing. No priors for comparison. The tip of the tubing otherwise terminates in the left upper quadrant. Xray Adult Shunt Series [Jan 07 2021 2 (more content not included)... Normal [facility] Risk Screen - Adult Emergenc yon 01-07-2021 Risk Screen - Adult Emergency Preferred Language: Preferred Language: Preferred Language for Discussing Health Care (patient/designee)Harmony ramirez Advanced Directives: Advance Directive/DNRno Family Violence Adult: Abuse Screen: Are you or have you been threatened or abused physically, emotionally, or sexually by anyoneno Learning Assessment (Patient): Learning Assessment (Patient): Patient is Able to be Assessed for Learningyes Factors Influencing Readiness to Learninterest in learning Factors that Impact Ability to Learnnone Devices/Methods Used to Communicatenone Learning Preferencesaudio Cultural Considerationsnone Developmental Considerationsnone Zoroastrian Considerationsnone Learning Assessment (Other Learner): Learning Assessment (Other Learner): Other learner availableno Pressure Injury/TB/Substance: Pressure Injury: Pressure Injury Present on Admissionno Do you have a coughno Substance Use Current or Former Historynever: e-Cigarette/Vaping, Alcohol, Street Drugs YES: Cigarette/Tobacco Smoking Statuscurrent every day smoker Admission Risk Screen: Significant IndicatorsComplete CAGE: CAGE: Is this an injured patient at a Trauma Center ([facility]/[place] /[place]): no Electronic Signatures: Ermelinda Ba (RN) (Signed 07-Jan-2021 01:05) Authored: Preferred Language, Advanced Directives, Family Violence Adult, Learning Assessment (Patient), Learning Assessment (Other Learner), Pressure Injury/TB/Substance, Pressure Injury, CAGE Last Updated: 07-Jan-2021 01:05 by Ermelinda Ba (RN) Normal [facility] TROPONIN Ion 01-07-2021 Troponin I.cardiac [Mass/Vol] ng/mL Normal 0.00 - 0.03 [facility] Comment on above: Result Comment: LESS THAN 0.04 NG/ML: NEGATIVE REPEAT TESTING IN THREE TO SIX HOURS IF CLINICALLY INDICATED. 0.04 - 0.5 NG/ML: CONSISTENT WITH POSSIBLE CARDIAC DAMAGE AND POSSIBLE INCREASED CLINICAL RISK. SERIAL MEASUREMENTS MAY HELP ASSESS EXTENT OF MYOCARDIAL DAMAGE. >0.5 NG/ML: CONSISTENT WITH CARDIAC DAMAGE, INCREASED CLINICAL RISK AND MYOCARDIAL INFARCTION. SERIAL MEASUREMENTS MAY HELP ASSESS EXTENT OF MYOCARDIAL DAMAGE. . Note: Troponin I testing is performed using different testing methodology at [facility] than at other legacy [facility]. Direct result comparisons should only be made within the same method. Performed By: #### T ROP2 #### [place] [address] Triage - EDon 01-07-2021 Triage - ED Quick Triage: Are You no Have You Given In The Last 6 Weeksno Are You Currently Breastfeedingno The patient and/or guardian verbally acknowledges placement for services into the following (when Urgent Care Service hours are operating):emergency department Chart Review: ARRIVAL INFORMATION Mode of Arrival: private vehicle CHIEF COMPLAINT CHERYL MCHUGH is a Female patient with a chief complaint of other (pt ambulatory to room with c/o shunt complication . 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 pt reports headache and nausea. pt reports this has happened about two years ago and shunt needed replaced. see MD at [facility]/[place]. denies vomiting, diarrhea. denies covid sx.). Triage Date/Time: 07-Jan-2021 00:59 Pain Rating (0-10): 8 = Severe Vital Signs: Temperature: 98.2F ( 36.7C) taken oral Blood Pressure: 135/94 Mean: Heart Rate: 97 Respiratory Rate: 20 Pulse Oximetry: 98% on room air, no respiratory support. Height: 5 feet 8 inches. 172.7 CM Weight: 229.9 pounds. Calculated 104.3 kg. (stated) Calculated BMI (kg/m2): 34.970 Calculated BSA (m2) 2.24 Nini Coma Scale: Best Eye Response: (E4) spontaneous Best Motor Response: (M6) obeys commands Best Verbal Response: (V5) oriented Nini Score: 15 Cough lasting greater than 3 weeks: no Allergies: no Patient has homicidal thoughts: no HANDY: 3 Symptoms Are POSITIVE For: headache, nausea and pain Symptoms Are Negative For: anxiety, chills, diaphoresis, dyspnea, loss of consciousness, numbness, tingling and weakness Last Known Well: known Time Last Known Well Date/Time: 07-Jan-2021 01:03 Risk Screens Suicide Risk Screen In the Past Month: Have you wished you were or wished you could go to sleep and not wake up no In the Past Month: Have you had any actual thoughts of killing yourself no In Your Lifetime: Have you ever done anything, started to do anything, or prepared to do anything to end your life no Coker Fall Scale Screening Has the patient fallen before (or is the patient in the ED as a result of a fall) has not had a fall Does the patient have an impaired gait does not have impaired gait Is the patient cognitively impaired not cognitively impaired Interventions: Coker Fall Interventions: MODERATE INTERVENTIONS: *Low Interventions Plus: * falls risk band/sticker applied to patient, *yellow non-skid footwear, *instruct to call for assistance before getting out of bed, *bed/chair/bedside commode/toilet alarms, *sensory devices/ambulatory aides available and in reach, *medications reviewed for potential side effects and care planning. TRAVEL HISTORY Travel History Coronavirus Screening: no exposure or symptoms PAIN Pain Scale Used: OCTAVIA Pain Rating (0-10): 8 = Severe Past Medical History: Past Medical History Reviewedyes Left side shunt: Past Surgical History, Active Brain stem cyst: Past Medical History, Active Electronic Signatures: Lucien Martinez (RN) (Signed 07-Jan-2021 01:06) Authored: Quick Triage Ermelinda Ba (RN) (Signed 07-Jan-2021 01:05) Authored: Quick Triage, Risk Screens, Pain, Chart Review, Scores, Past Medical History Last Updated: 07-Jan-2021 01:06 by Lucien Martinez (RN) [facility] Social History Date Type Detail Facility Current every day smoker Current every day smoker [facility] Work Phone: Comment on above: started age 16 yr ol d, 1 11/15 ppd; Vital Signs Date Time Vital Sign Value Performing Clinician Chela aburto 02-02-2022 13:06-0400 Body height 172.72 cm Referring Provider Unknown [email or web address] Phone: 02-02-2022 13:06-0400 Body mass index (BMI) [Ratio] 43.79 kg/m2 Referring Provider Unknown [email or web address] Phone: 02-02-2022 13:06-0400 Body surface area Derived from formula 2.39 m2 Referring Provider Unknown [facility] [email or web address] Phone: 02-02-2022 13:06-0400 Body weight 130.63 kg Referring Provider Unknown [email or web address] Phone: 02-02-2022 13:06-0400 Diastolic blood pressure 80 mm[Hg] Referring Provider Unknown [facility] Work Phone: 02-02-2022 13:06-0400 Heart rate 84 /min Referring Provider Unknown [facility] Work Phone: 02-02-2022 13:06-0400 Systolic blood pressure 120 mm[Hg] Referring Provider Unknown [email or web address] Phone: 01-04-2022 13:13-0500 Body height 172.72 cm Referring Provider Unknown [facility] Work Phone: 01-04-2022 13:13-0500 Body mass index (BMI) [Ratio] 43.64 kg/m2 Referring Provider Unknown [facility] Work Phone: 01-04-2022 13:13-0500 Body surface area Derived from formula 2.38 m2 Referring Provider Unknown [facility] Work Phone: 01-04-2022 13:13-0500 Body weight 130.18 kg Referring Provider Unknown [facility] Work Phone: 01-04-2022 13:13-0500 Diastolic blood pressure 80 mm[Hg] Referring Provider Unknown [facility] Work Phone: 01-04-2022 13:13-0500 Heart rate 72 /min Referring Provider Unknown [facility] Work Phone: 01-04-2022 13:13-0500 Systolic blood pressure 128 mm[Hg] Referring Provider Unknown [facility] Work Phone: 04-30-2021 08:03-0400 Systolic blood pressure 124 mm[Hg] Referring Provider Unknown [facility] Work Phone: 04-28-2021 13:44-0400 Body height 172.72 cm Referring Provider Unknown [facility] Work Phone: 04-28-2021 13:44-0400 Body mass index (BMI) [Ratio] 45.01 kg/m2 Referring Provider Unknown [facility] Work Phone: 04-28-2021 13:44-0400 Body surface area Derived from formula 2.41 m2 Referring Provider Unknown [facility] Work Phone: 04-28-2021 13:44-0400 Body weight 134.26 kg Referring Provider Unknown [facility] Work Phone: 04-28-2021 13:44-0400 Diastolic blood pressure 80 mm[Hg] Referring Provider Unknown [facility] Work Phone: 04-28-2021 13:44-0400 Heart rate 84 /min Referring Provider Unknown [facility] Work Phone: 04-28-2021 13:44-0400 Systolic blood pressure 124 mm[Hg] Referring Provider Unknown [facility] Work Phone: 03-17-2021 13:50-0400 Body height 172.72 cm Valentina Carlton Work Phone: [facility] Work Phone: 03-17-2021 13:50-0400 Body mass index (BMI) [Ratio] 44.4 kg/m2 Valentina M Bianka Work Phone: [facility] Work Phone: 03-17-2021 13:50-0400 Body surface area Derived from formula 2.4 m2 Valentina Florian Bianka Work Phone: [facility] Work Phone: 03-17-2021 13:50-0400 Body weight 132.45 kg Valentina Carlton Work Phone: [facility] Work Phone: 03-17-2021 13:50-0400 Diastolic blood pressure 78 mm[Hg] Valentina Carlton Work Phone: [facility] Work Phone: 03-17-2021 13:50-0400 Heart rate 80 /min Valentina Carlton Work Phone: [facility] Work Phone: 03-17-2021 13:50-0400 Systolic blood pressure 120 mm[Hg] Valentina Carlton Work Phone: [facility] Work Phone: History of Present illness Narrative 01-04-2022 Note Date & Type Note Facility 01-04-2022 History of Presen t illness Narrative Ms. Mchugh presents today for hand pain/numbness x 6 months, ranges from 2-7/10 in pain severity. No alleviating/aggravating factors. She is right hand dominant. Similar symptoms in bilateral feet but milder. Denies history of spinal injury, no injury to extremities. History of depression with anxiety, follows with psych at [facility].Fatigue - Has been feeling sluggish, would like to check A1C and CBC to check sugar and hemoglobin. -[facility] Work Phone: History of Present illness Narrative 04-30-2014 Note Date & Type Note Facility 04-30-2014 History of Present illness Narrative degenerative disc- History of degenerative disc disease for the last several years . Reports that she was being treated with opioids in [place]. She has received steroid injections that she did not feel were effective. She is requesting a pain management consult today due to worsening pain, decreased range of motion. The pain is 8/10 and preventing her from sleeping at night.Mood disorder/Anxiety- Seroquel is working well for her. Reports good compliance, good tolerance, and good symptom improvement. Denies side effects. She is seeing a counselor every two weeks at [facility]. She has had two sessions thus far, and reports that she can see the psychiatrist for medication management after the her third counseling session. Denies SI.Hyperlipidemia- !0 year cardiac risk assessment 21.5%, denies chest pain, palpitations, leg claudication, Recognizes a need to improve improve diet and exercise.prediabetes- admits to eating large amounts of high sugar foods, does not monitor blood sugars. Denies excessive thirst or urination. Does not exercise regularly. -[facility] Work Phone: History of Present illness Narrative Note Date & Type Note Facility History of Present illness Narrative Present C/C sx for about 15yrs but worse the last 2 yrs. There is recent MRI and x-rays done. There is ++ findings for IVDD involvement per DX. She has had PT here as well as chirop/injection HX. She is a low fall risk. She also has scored a 12 on the PHQ-9 instrument today. Conitnue with pool unloading and core work. Will finish with land based core work and trunk ROM as cathy.Clinical Presentation: Stable and/or uncomplicated characteristics.Level of Complexity: lowProblem List: activity limitations, ADLs/IADLs/self care skills, decreased functional level, decreased knowledge of HEP, decreased knowledge of precautions, fall risk, gait/locomotion, pain, range of motion/joint mobility, strength and transfers. [facility] Work Phone: History of Present illness Narrative Note Date & Type Note Facility History of Present illness Narrative Patient orientated to naples. Patient tolerated treatment without increased pain. Patient has good form/understanding with ther-ex, once shown. Keeps body in good alignment. Patient has weak TrA and attempts to keep intact with ther-ex. Continue with core stability while performing dyn activity to decrease back pain. [facility] Work [facility]: History of Present illness Narrative Note Date & Type Note Facility History of Present illness Narrative Patient tolerated treatment without increased pain. Patient has weak TrA and attempts to keep intact with ther-ex. Patient needing one UE support with LE ther-ex and with 100% unloading. Patient uses slow, controlled movements and keeps body in good alignment. Continue with core stability while performing dyn activity to decrease back pain. [facility] Work Phone: History of Present illness Narrative Note Date & Type Note Facility History of Present illness Narrative Patient tolerated treatment without increased pain. Patient has weak TrA and attempts to keep intact with ther-ex. Patient needing one UE support with LE ther-ex and with 100% unloading. Patient has good form/understanding with ther-ex and keeps body in good alignment. Continue with core stability while performing dyn activity to decrease back pain. [facility] Work Phone: History of Present illness Narrative Note Date & Type Note Facility History of Present illness Narrative 41 YOF presents for med check.BIPOLAR: Feeling good on current regimen. No issues.ANXIETY: Feeling good on current regimen. No issues.DEPRESSION: Feeling good on current regime. No issues.FIBROMYALGIA: Cymbalta effective since starting, reduced pain and paresthesias in hands.FATIGUE: Increased fatigue since starting cymbalta. Sleeps well. Does not exercise, diet not the healthiest .HYPERLIPIDEMIA: ASCVD 10 year risk 7.37%-borderline. Discussed statin therapy vs. diet modification and exercise.IMPAIRED FASTING GLUCOSE: Last A1C 6.1. Discussed metformin vs. diet modification and exercise.HEALTH MAINTENANCE:Does no follow with women's health, does not want mammogram right now.Check B12 and Vit D at follow up. -[facility] Work Phone: Reason for visit Narrative Note Date & Type Note Facility Reason for visit Narrative Initial Evalu ation . IVDD lumbar; lumb radic; LBP.Referred by: Geetha Gutierrez [facility] Work Phone: Family History No Family History Records FoundUnknown Family Member Name Dates Details Family history of lung cance r: Maternal Grandfather(V16.1, Z80.1) Status:Active Family history of blood clot s: Maternal Grandmother, Aunt(V18.3, Z82.49) Status:Active Family history of type 2 colleen betes mellitus: Mother, Sister(V18.0, Z83.3) Status:Active Unknown Family Member Name Dates Details Family history of lung cance r: Maternal Grandfather(V16.1, Z80.1) Status:Active Family history of blood clot s: Maternal Grandmother, Aunt(V18.3, Z82.49) Status:Active Family history of type 2 colleen betes mellitus: Mother, Sister(V18.0, Z83.3) Status:Active Unknown Family Member Name Dates Details Family history of lung cance r: Maternal Grandfather(V16.1, Z80.1) Status:Active Family history of blood clot s: Maternal Grandmother, Aunt(V18.3, Z82.49) Status:Active Family history of type 2 colleen betes mellitus: Mother, Sister(V18.0, Z83.3) Status:Active Unknown Family Member Name Dates Details Family history of lung cance r: Maternal Grandfather(V16.1, Z80.1) Status:Active Family history of blood clot s: Maternal Grandmother, Aunt(V18.3, Z82.49) Status:Active Family history of type 2 colleen betes mellitus: Mother, Sister(V18.0, Z83.3) Status:Active Unknown Family Member Name Dates Details Family history of lung cance r: Maternal Grandfather(V16.1, Z80.1) Status:Active Family history of blood clot s: Maternal Grandmother, Aunt(V18.3, Z82.49) Status:Active Family history of type 2 cloleen betes mellitus: Mother, Sister(V18.0, Z83.3) Status:Active Unknown Family Member Name Dates Details Family history of lung cance r: Maternal Grandfather(V16.1, Z80.1) Status:Active Family history of blood clot s: Maternal Grandmother, Aunt(V18.3, Z82.49) Status:Active Family history of type 2 colleen betes mellitus: Mother, Sister(V18.0, Z83.3) Status:Active Unknown Family Member Name Dates Details Family history of lung cance r: Maternal Grandfather(V16.1, Z80.1) Status:Active Family history of blood clot s: Maternal Grandmother, Aunt(V18.3, Z82.49) Status:Active Family history of type 2 colleen betes mellitus: Mother, Sister(V18.0, Z83.3) Status:Active Unknown Family Member Name Dates Details Family history of lung cance r: Maternal Grandfather(V16.1, Z80.1) Status:Active Family history of blood clot s: Maternal Grandmother, Aunt(V18.3, Z82.49) Status:Active Family history of type 2 colleen betes mellitus: Mother, Sister(V18.0, Z83.3) Status:Active Unknown Family Member Name Dates Details Family history of lung cance r: Maternal Grandfather(V16.1, Z80.1) Status:Active Family history of blood clot s: Maternal Grandmother, Aunt(V18.3, Z82.49) Status:Active Family history of type 2 colleen betes mellitus: Mother, Sister(V18.0, Z83.3) Status:Active Unknown Family Member Name Dates Details Family history of lung cance r: Maternal Grandfather(V16.1, Z80.1) Status:Active Family history of blood clot s: Maternal Grandmother, Aunt(V18.3, Z82.49) Status:Active Family history of type 2 colleen betes mellitus: Mother, Sister(V18.0, Z83.3) Status:Active Unknown Family Member Name Dates Details Family history of lung cance r: Maternal Grandfather(V16.1, Z80.1) Status:Active Family history of blood clot s: Maternal Grandmother, Aunt(V18.3, Z82.49) Status:Active Family history of type 2 colleen betes mellitus: Mother, Sister(V18.0, Z83.3) Status:Active Unknown Family Member Name Dates Details Family history of lung cance r: Maternal Grandfather(V16.1, Z80.1) Status:Active Family history of blood clot s: Maternal Grandmother, Aunt(V18.3, Z82.49) Status:Active Family history of type 2 colleen betes mellitus: Mother, Sister(V18.0, Z83.3) Status:Active Unknown Family Member Name Dates Details Family history of lung cance r: Maternal Grandfather(V16.1, Z80.1) Status:Active Family history of blood clot s: Maternal Grandmother, Aunt(V18.3, Z82.49) Status:Active Family history of type 2 colleen betes mellitus: Mother, Sister(V18.0, Z83.3) Status:Active Unknown Family Member Name Dates Details Family history of type 2 colleen betes mellitus: Mother, Sister(V18.0, Z83.3) Status:Active Family history of blood clot s: Maternal Grandmother, Aunt(V18.3, Z82.49) Status:Active Family history of lung cance r: Maternal Grandfather(V16.1, Z80.1) Status:Active Unknown Family Member Name Dates Details Family history of lung cance r: Maternal Grandfather(V16.1, Z80.1) Status:Active Family history of blood clot s: Maternal Grandmother, Aunt(V18.3, Z82.49) Status:Active Family history of type 2 colleen betes mellitus: Mother, Sister(V18.0, Z83.3) Status:Active Unknown Family Member Name Dates Details Family history of lung cance r: Maternal Grandfather(V16.1, Z80.1) Status:Active Family history of blood clot s: Maternal Grandmother, Aunt(V18.3, Z82.49) Status:Active Family history of type 2 colleen kita mellitus: Mother, Sister(V18.0, Z83.3) Status:Active Chief Complaint 1 month f/u, review labs.pt c/o b/l hand pain and numbness x 6 month , would like blood work to check BG, c/o feeling fatigued.1 month med check , pt c/o of fatigue. Summary Purpose Advance Directives No Advanced Directives Records FoundNo Advanced Directives Records FoundNo Advanced Directives Records FoundNo Advanced Directives Records FoundNo Advanced Directives Records FoundNo Advanced Directives Records FoundNo Advanced Directives Records Found Additional Source Comments INFORMATION SOURCE (unrecogn ized section and content) DATE CREATED AUTHOR 05/21/2021 [facility] DATE CREATED AUTHOR AUTHOR'S ORGANIZ ATION 07/24/2021 [facility] DATE CREATED AUTHOR AUTHOR'S ORGANIZ ATION 02/05/2022 [employer] DATE CREATED AUTHOR AUTHOR'S ORGANIZ ATION 05/08/2022 [facility] DATE CREATED AUTHOR AUTHOR'S ORGANIZ ATION 10/18/2022 [facility] pital DATE CREATED AUTHOR AUTHOR'S ORGANIZ ATION [facility]/2023 [facility] DATE CREATED AUTHOR AUTHOR'S ORGANIZ ATION 04/15/2024 [facility] FOR RECORDS PERTAINING TO PATIENTS WHO ARE OR HAVE BEEN ENROLLED IN A CHEMICAL DEPENDENCY/SUBSTANCEABUSE PROGRAM, SOME INFORMATION MAY BE OMITTED. This clinical summary was aggregated from multiple sources. Caution should be exercised in using it in the provision of clinical care. This summary normalizes information from multiple sources, and as a consequence, information in this document may materially change the coding, format and clinical context of patient data. In addition, data may be omitted in some cases. CLINICAL DECISIONS SHOULD BE BASED ON THE PRIMARY CLINICAL RECORDS. [facility]. provides no warranty or guarantee of the accuracy or completeness of information in this document.
--- NOTE | 2024-05-01 18:52 | CT_ITS ---
The [address] [address] Patient Name: THOMAS GARCIA MRN: [id number] date: 1980 Sex: F Assigned Patient Location: ER Current Patient Location: .MAIN Accession/Order Number: [id number] Exam Date: 05/01/2024 19:00 Report Date: 05/01/2024 20:13 At the request of: MAIKOL MERCEDES Procedure: CT head/brain wo con CT OF THE BRAIN WITHOUT CONTRAST: 05/01/2024 7:00 PM EDT HISTORY: Headache with history of shunt placement. TECHNIQUE: Contiguous axially collimated images were obtained through the intracranial compartment, from the vertex through the foramen magnum. Coronal and Sagittal reformatted images were prepared on a separate workstation and reviewed on the PACS for anatomic correlation. No contrast was administered. This CT exam was performed using one or more of the following dose reduction techniques: Automated exposure control, adjustment of the mA and/or kV according to patient size, or use of iterative reconstruction technique. Thin section coronal and sagittal images were reconstructed from the axial data set. All images were reviewed and interpreted. COMPARISON: None. FINDINGS: Posterior midline occipital craniectomy with placement of shunt catheter entering via craniectomy site extending into posterior midline cystic structure with tip directed toward the left posterior cerebellar subdural distribution. CSF attenuation fluid collection extends 3.7 cm AP by 4.27 m transverse on axial scans and extends craniocaudal 5.8 cm. Correlate with history. This is not causing any significant mass effect. No hydrocephalus. No midline shift or herniation. Basal cisterns, aqueduct and fourth ventricle are patent. There is focal hyperdense lesion which is small at level of third ventricle and foramen of Espino measuring 2 x 2 mm. Small calcification versus tiny colloid cyst. Remote lacunar infarct within the anterior limb right internal capsule. No acute intra-axial or extra-axial hemorrhage or fluid collection. No intra-axial mass or edema. No midline shift or herniation. Alford white matter differentiation is well preserved throughout, without evidence of acute ischemia. There is no significant leukomalacia. Thalami are unremarkable No obvious tonsillar ectopia. Brainstem is normal. No acute fractures. The mastoid air cells are well-aerated. The paranasal sinuses are normally aerated. CT/CT head/brain wo con IMPRESSION: 1. Occipital craniectomy with placement of drain/shunt in the posterior fossa extending to the left of midline posteriorly dorsal to the left cerebellar hemisphere extending through distribution of large CSF-containing cystic lesion at posterior midline cerebellar region. See measurements above. Correlate with history. 2. No acute ischemic change or intracranial hemorrhage. No hydrocephalus. No midline shift or herniation. 3. 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 4. 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 Electronically authenticated by: ZITA STEVE Date: 05/01/2024 20:13
[2024-05-01] MEDS: PROMETHAZINE HCL 25 MG/ML VIAL IM (19:09)
[2024-05-01] MEDS: KETOROLAC TROMETHAMINE 60 MG/2 ML VIAL IM (19:09)
[2024-05-01 20:28] VITALS: BP 133/79; PULSE 80; O2SAT 100
== END 2024-05-01 20:28 | disposition home or self-care (01) ==
PROVIDERS: Emergency Provider Internal Medicine
DX: R51.9 Headache, unspecified (principal); F17.200 Nicotine dependence, unspecified, uncomplicated
CPT/HCPCS: 70450; 96372; 99285; J1885; J2250